=== PATIENT | male | born 1955 | race Caucasian/White ===

== ENCOUNTER → 2020-07-10 11:16 | Outpatient (CLI) | payer BC, SELFPAY ==
--- NOTE | ~2020-07-10 | MR_ITS ---
EXAMINATION: MR shoulder LT w con DATE: 07/10/2020 13:10 INDICATION: Rotator cuff tear presenting with left shoulder pain after shoveling snow 2 weeks prior. TECHNIQUE: Magnetic resonance imaging (MRI) of the left shoulder was performed following intra-artic ular gadolinium contrast injection and without intravenous contrast. Details of the glenohumeral join t injection have been dictated separately. Sequences included axial T2-weighted FS FSE, axial T1-robyn ghted FS FSE, coronal oblique T1-weighted FS FSE, coronal oblique T2-weighted FSE, sagittal T2-weight ed FS FSE, sagittal T1-weighted FSE, and ABER (abduction external rotation) T1-weighted FS FSE. COMPARISON: None. FINDINGS: Coracoacromial arch: The acromion undersurface is flat in morphology (type I). The coracoacromial ligament is normal. Mild acromioclavicular osteoarthritis. Rotator cuff: The supraspinatus, infraspinatus and teres minor are normal. The subscapularis is normal. Normal rota tor cuff muscle bulk and signal. Biceps tendon, glenoid labrum and glenohumeral cartilage: Long head of the biceps tendon is normal. There is a normal anterosuperior sublingual foramen along w ith a labral sulcus at the superior glenoid. The there is a tear beginning at the posterior aspect of the sulcus at the 11:30 position which extends posteriorly and inferiorly to the 6:30 position. Ther e is crescentic region of full-thickness chondral ulceration with underlying subarticular edema and c ystic change at the 7:00-10:30 region of the posterior glenoid. Additional small region of less sever e chondral fissuring at the anterior glenoid with adjacent small tear at the 3:00 position. Cartilage at the humeral head appears relatively preserved. Bones and other: Bone alignment is normal. No fracture or pathologic marrow replacing process. No loose osteochondral bodies. No abnormal fluid in the subacromial/subdeltoid bursa to suggest bursitis. IMPRESSION: 1. 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 Reviewed, dictated and finalized at location B. QUALITY ANALYST IMPRESSION: 1. Mild glenohumeral osteoarthritis with high-grade chondromalacia and labral t ear along the posterior superior to posterior inferior glenoid and small region of moderate grade chondromalacia and small labral tear at the anterior glenoid .
--- NOTE | ~2020-07-10 | XR_ITS ---
EXAMINATION: XR fl inj shoulder LT - MR/CT DATE: 07/10/2020 12:36 INDICATION: Rotator cuff tear with anterior left shoulder pain and limited range of motion following injury while shoveling snow 2 weeks prior. TECHNIQUE: A time-out was performed to verify the patient's name, date of , and procedure to b e performed. The procedure including the risks, benefits, and alternatives was discussed with the pat ient. Risks discussed included bleeding and infection. The patient understood the risks and agreed to proceed. The skin overlying the rotator cuff interval of the left glenohumeral joint was prepped an d draped in usual sterile fashion. Anesthetic was administered with 1% lidocaine subcutaneously. A 22 G needle was advanced under fluoroscopic guidance into the joint. Injection of 0.6 mL of Omnipaqu e 240 confirmed intra-articular position of the needle. Subsequently, injectate consisting of 12 mL of 2:1:1 mixture of sterile saline:Omnipaque 240:1% lidocaine mixed 200:1 with 529 mg/mL Multihance g adolinium contrast was injected with intra-articular administration confirmed with intermittent fluor oscopy. The needle was removed and the entry site was cleaned and dressed. There were no immediate c omplications. Fluoroscopy exposure time was 0.3 minutes. The total number of images was 220. FINDINGS: Real-time fluoroscopy demonstrates the needle in the left glenohumeral joint. IMPRESSION: 1. Successful left glenohumeral joint injection of a dilute gadolinium contrast mixture for subsequen t MRI arthrogram which will be dictated separately. Reviewed, dictated and finalized at location B. ARINE DIVER IMPRESSION: 1. Successful left glenohumeral joint injection of a dilute gadolinium contrast mixture for subsequent MRI arthrogram which will be dictated separately.
== END ==
PROVIDERS: Visit Provider Chiropractor
DX: M75.102 Unspecified rotator cuff tear or rupture of left shoulder, not specified as traumatic (principal); M19.012 Primary osteoarthritis, left shoulder
CPT/HCPCS: 23350; 73222; A9577; Q9966

== ENCOUNTER 2024-10-01 12:51 | Outpatient (CLI) | payer MEDICARE, SELFPAY ==
--- NOTE | ~2024-10-01 | XR_ITS ---
XR chest 2V 10/01/2024 13:27 Indication: Persistent cough Procedure: 2 view chest Comparison: No prior studies for comparison. Findings: Bibasilar atelectasis. No focal pneumonia, edema, pleural effusion or pneumothorax. Heart s ize normal. Impression: 1: Bibasilar atelectasis. Reviewed, dictated and finalized at location A. Impression: 1: Bibasilar atelectasis.
--- OUTSIDE RECORDS SUMMARY | 2024-10-01 13:05 | XMS_ITS | CONTINUITY OF CARE DOCUMENT ---
Author Name amandeep bernstein Address Unknown Organization [facility] Address [address] [place] [address] Phone [phone] Care Team Providers Care Controlled Area Checker Name Role Phone Juan Manuel ESPINOZA, Nithin Camacho Unavailable [phone] BUTCH ESPINOZA, KALIEY Galeas Unavailable KAILEY KUNZ MD Unavailable PROBLEMS Condition Status Date Provider Notes Chest pain- Stress test was normal active John Resendiz MD HTN essential active John Resendiz MD Hypertension active ? Nithin riggs MD Erectile dysfunction active Nithin Zambrano MD Hypercholesterolemia active Nithin Zambrano MD Mitral regurgitation active Nithin Zambrano MD Palpitations active Nithin riggs MD Fall risk active Nithin riggs MD Exposure to COVID-19 coronavirus active Nithin Zambrano MD Vaccinated moderna x2 pfizer x1 prior covid infection asymptomatic Cardiology examination active Kaylynn Zambrano MD ENCOUNTERS Date Type Provider Location Encounter Diag nosis - In-person encounter Office Visit Nithin Zambrano MD [facility] Cardiology examination - In-person encounter Office Visit Nithin Zambrano MD [facility] - In-person encounter Office Visit Nithin Zambrano MD [facility] - In-person encounter Office Visit Nithin Zambrano MD [facility] Exposure to COVID-19 coronavirus - In-person encounter Office Visit Nithin Zambrano MD [facility] Fall risk - In-person encounter Office Visit Nithin Zambrano MD [facility] Palpitations - In-person encounter Office Visit Nithin Zambrano MD [facility] Mitral regurgitation - In-person encounter Office Visit Nithin Zambrano MD [facility] - In-person encounter Office Visit Nithin Zambrano MD [facility] - In-person encounter Office Visit Nithin Zambrano MD [facility] - In-person encounter Office Visit Nithin Zambrano MD [facility] Hypercholesterolemia - In-person encounter Office Visit Nithin Zambrano MD [facility] - In-person encounter Office Visit Nithin Zambrano MD [facility] Erectile dysfunction - In-person encounter Office Visit Nithin Zambrano MD [facility] Hypertension - In-person encounter Office Visit John Resendiz MD [facility] Chest pain- Stress test was normalHTN essential VITAL SIGNS Date Observation Value Provider Body Mass Index (Ratio) 30.06 kg/m2 Kelli Zambrano MD blood pressure, diastolic 78 mm[Hg] Ary nkLoglinda blood pressure, systolic 120 mm[Hg] Flora Moralezoglinda blood pressure, cuff size regular Sterling Gomez blood pressure, diastolic 78 mm[Hg] Sterling Gomez blood pressure, systolic 120 mm[Hg] Tab trevor Gomez oxygen saturation, oximetry 98 % Solange Gomez respiratory rate E&M 12 /min Solange Gomez pulse rate 61 /min Solange Gomez weight E&M 247 [lb_av] Solange Gomez height E&M 76 [in_i] Solange Gomez Body Mass Index (Ratio) 30.18 kg/m2 Kelli Zambrano MD blood pressure, diastolic 77 mm[Hg] [facility] blood pressure, systolic 134 mm[Hg] Guillermo cheng Nathan oxygen saturation, oximetry 98 % Karin Nathan pulse rate 62 /min Karinskylar Evans respiratory rate E&M 18 /min Karin rey weight E&M 248 [lb_av] Karin Nathan height E&M 76 [in_i] Karin Evans blood pressure, diastolic 91 mm[Hg] [facility] pressure, systolic 149 mm[Hg] Flora Segundo blood pressure, diastolic 91 mm[Hg] [facility] blood pressure, systolic 149 mm[Hg] Flora Moralezlinda respiratory rate E&M 18 /min Mildred Rivera pulse rate 65 /min Mildred Rivera Body Mass Index (Ratio) 30.14 kg/m2 Mina Rivera weight in kilograms E&M 112.31 kg Mina Rivera weight E&M 247.6 [lb_av] Mildred Rivera height E&M 76 [in_i] Mildred Rivera height in centimeters E&M 193.04 cm halley Rivera blood pressure, diastolic 91 mm[Hg] halley Rivera blood pressure, systolic 149 mm[Hg] [facility] daquan Rivera oxygen saturation, oximetry 98 % Mildred Rivera blood pressure, cuff size regular Lakia Rivera Body Mass Index (Ratio) 30.06 kg/m2 Kelli Zambrano MD blood pressure, diastolic 77 mm[Hg] Li nkLogic blood pressure, systolic 120 mm[Hg] Flora kLogic blood pressure, diastolic 77 mm[Hg] Ca therine Cesar blood pressure, systolic 120 mm[Hg] Cat herine [place] oxygen saturation, oximetry 98 % Krissy Cesar respiratory rate E&M 14 /min Catheri ne [place] pulse rate 79 /min Krissy [place] weight E&M 247 [lb_av] Krissy [place] blood pressure, cuff size regular Ca therine [place] height E&M 76 [in_i] Krissy Cesar Body Mass Index (Ratio) 28.85 kg/m2 Kelli Zambrano MD blood pressure, diastolic 86 mm[Hg] Li nkLogic blood pressure, systolic 112 mm[Hg] Flora kLogic blood pressure, cuff size large Ca therine [place] blood pressure, diastolic 86 mm[Hg] Ca therine Cesar blood pressure, systolic 112 mm[Hg] Cat herine [place] oxygen saturation, oximetry 97 % Krissy Cesar respiratory rate E&M 16 /min Catheri ne Cesar pulse rate 64 /min Krissy Cesar weight E&M 237 [lb_av] Krissy [place] height E&M 76 [in_i] Krissy [place] Body Mass Index (Ratio) 28.60 kg/m2 Kelli Zambrano MD blood pressure, cuff size regular Cy gina Casiano blood pressure, diastolic 76 mm[Hg] Cy gina Casiano blood pressure, systolic 130 mm[Hg] Deanne milly Casiano pulse rate 69 /min Leda johns oxygen saturation, oximetry 98 % Leda Casiaon respiratory rate E&M 16 /min Leda Casiano weight E&M 235 [lb_av] Leda johns height E&M 76 [in_i] Leda johns Body Mass Index (Ratio) 28.97 kg/m2 Stan geraldo Lambros blood pressure, diastolic 80 mm[Hg] To nsha Miguel blood pressure, systolic 125 mm[Hg] Ton sha Miguel oxygen saturation, oximetry 96 % Tonsha Miguel respiratory rate E&M 16 /min Tonsha Miguel pulse rate 54 /min Tonsha Miguel weight E&M 238 [lb_av] Tonsha Miguel height E&M 76 [in_i] Tonsha Miguel Body Mass Index (Ratio) 29.09 kg/m2 Kelli Zambrano MD pulse rate 68 /min [facility] blood pressure, diastolic 80 mm[Hg] Marcela ittelmer Block blood pressure, systolic 130 mm[Hg] Agueda sd Zimmerman oxygen saturation, oximetry 99 % Yumiko Block weight E&M 239 [lb_av] Yumiko Block respiratory rate E&M 16 /min Brittan Block height E&M 76 [in_i] Yumiko Block temperature E&M 97.7 [degF] Deepti Hermelinda saucedo Body Mass Index (Ratio) 29.94 kg/m2 Erwin Plurad blood pressure, cuff size regular Cy brooklynlee ann Oh blood pressure, diastolic 76 mm[Hg] Cy ntkellkeely Casiano blood pressure, systolic 120 mm[Hg] Deanne milly Casiano oxygen saturation, oximetry 96 % Leda Oh respiratory rate E&M 16 /min Leda Casiano pulse rate 67 /min Leda johns weight E&M 246 [lb_av] Nithin riggs MD height E&M 76 [in_i] Leda Gonzales l Body Mass Index (Ratio) 29.16 kg/m2 Kelli Zambrano MD blood pressure, diastolic 70 mm[Hg] Papo Elam blood pressure, systolic 110 mm[Hg] Lizzy Elam oxygen saturation, oximetry 98 % Levi Elam respiratory rate E&M 18 /min Oli Elam pulse rate 70 /min Levi Dragan maryam weight E&M 239.6 [lb_av] Levi Adrian zelda height E&M 76 [in_i] Levi Dragan maryam Body Mass Index (Ratio) 28.46 kg/m2 Kelli Zambrano MD blood pressure, resting Yes Cyn Elam blood pressure, diastolic 82 mm[Hg] Papo Elam blood pressure, systolic 135 mm[Hg] Lizzy Elam oxygen saturation, oximetry 92 % Levi Elam respiratory rate E&M 18 /min Oli Elam pulse rate 68 /min Levi Archibald ernestineon weight E&M 233.8 [lb_av] Levi tangon height E&M 76 [in_i] Levi Archibald ernestineon respiratory rate E&M 16 /min Lynette Jayden pulse rate 64 /min Lynette Jayden oxygen saturation, oximetry 98 % Lynette Jayden blood pressure, diastolic 75 mm[Hg] Ky dorothy Jayden blood pressure, systolic 111 mm[Hg] Patricia daphne Jayden Body Mass Index (Ratio) 28.43 kg/m2 Jojo Carpenter weight E&M 233.6 [lb_av] Lynette Carpenter blood pressure, diastolic 88 mm[Hg] Me dorothy Carpenter blood pressure, systolic 134 mm[Hg] Patricia Carpenter pulse rate 66 /min Lynette Carpenter oxygen saturation, oximetry 99 % Lynette Carpenter respiratory rate E&M 16 /min Lynette Carpenter Body Mass Index (Ratio) 29.14 kg/m2 Jojo Carpenter weight E&M 239.4 [lb_av] Lynette Carpenter blood pressure, diastolic 102 mm[Hg] Me dorothy Carpenter blood pressure, systolic 149 mm[Hg] Patricia Carpenter respiratory rate E&M 16 /min Lynette Carpenter pulse rate 87 /min Lynette Carpenter oxygen saturation, oximetry 97 % Lynette Carpenter Body Mass Index (Ratio) 28.60 kg/m2 Jojo Carpenter weight E&M 235.0 [lb_av] Lynette Carpenter Body Mass Index (Ratio) 28.36 kg/m2 Ortega i Antoine blood pressure, diastolic 80 mm[Hg] Ke jamilai Antoine blood pressure, systolic 126 mm[Hg] Anam Schultz pulse rate 78 /min Brenda lebroner oxygen saturation, oximetry 98 % Brenda Schultz respiratory rate E&M 16 /min Brenda hollins weight E&M 233 [lb_av] Brenda lebroner height E&M 76 [in_i] Brenda Ridley lder ALLERGIES No Known Drug Allergies HISTORY OF MEDICATION USE Medication Status Instructions Dates Provider Indications Com ments Viagra 50 mg tablet active 1 tablet by mouth once a day 1 tablet 1 hour before intercourse 2024/05/ 29 Kala Marino [employer] Coreg 6.25 mg tablet active TAKE 1&1/2 TABLETS BY MOUTH TWICE DAILY Jannette Rushing carvedilol 6.25 mg tablet completed TAKE 1 1/2 TABLET BY MOUTH TWICE DAILY - Jannette Rushing carvedilol 6.25 mg tablet completed Take 1 1/2 tablet by mouth twice a day - Jannette Almanzahiezio nitroglycerin 0.4 mg tablet, sublingual active PLACE 1 TABLET UNDER TONGUE EVERY 5 MINS, UP TO 3 DOSES NEEDED FOR CHEST PAIN. DO NOT EXCEED A TOTAL OF 3 DOSES IN 15 MINUTES. GO TO ER IF 3 DOSES USED Nithin Zambrano MD LISINOPRIL-HYDRO CHLOROTHIAZIDE 10-12.5 MG ORAL TABLET completed take one tab tablet - Nithin Zambrano MD amlodipine 10 mg tablet active 1 tablet once a day Brenda Schultz Coreg 6.25 mg tablet completed Take 1.5 tablet by mouth twice a day - Nazanin Arroyo Lipitor 20 mg tablet active 1 tablet by mouth once a day Nithin Zambrano MD CARDIZEM 120 MG ORAL TABLET completed qd - Levi Elam HYDROCODONE-ACET AMINOPHEN 5-325 MG ORAL TABLET completed prn - Levi Elam MULTIVITAMIN ADULT ORAL TABLET completed once daily - Levi Elam ASPIR-81 TABLET DELAYED RELEASE completed once daily - Leda Casiano alprazolam 1 mg tablet active 1 tablet by mouth once a day Levi Elam LISINOPRIL-HYDRO CHLOROTHIAZIDE 10-12.5 MG ORAL TABLET completed ONE TAB. DAILY - Yumiko Zimmerman MOBIC 7.5 MG ORAL TABLET completed take one pill twice a day as needed - Lynette Carpenter ALPRAZOLAM 0.25 MG ORAL TABLET completed take one pill twice a day - Lynette Carpenter VICODIN ES TABLET completed 325mg three times a day - Lynette Carpenter ASPIRIN 325 MG ORAL TABLET completed take one pill a day - Lynette Carpenter TOPROL XL 25 MG ORAL TABLET EXTENDED RELEASE 24 HOUR completed take one pill a day - Nithin Zambrano MD SOCIAL HISTORY Date Observation Value Provider personal history of marijuana use no Kala Ventimiglia [facility] drug use no Kala Ventimig dedrick [facility] alcohol use, average drinks per day social Nithin Zambrano MD alcohol use yes Nithin riggs MD smoking status Never smoker Nithin torres MD social history E&M S moking History: Ayush harry has never smoked. Nithin Zambrano MD social history reviewed E&M revi ewed - no changes required Nithin Zambrano MD smoking status Never smoker Karin Nathan social history E&M S moking History: Ayush harry has never smoked. Nithin Zambrano MD social history reviewed E&M revi ewed - no changes required Nithin Zambrano MD smoking status Never smoker Mildred Nicole social history E&M S moking History: Ayush harry has never smoked. Nithin Zambrano MD social history reviewed E&M revi ewed - no changes required Nithin Zambrano MD smoking status Never smoker Krissy Isis s smoking status Never smoker Krissy Isis s social history E&M S moking History: Ayush harry has never smoked. Nithin Zambrano MD social history reviewed E&M revi ewed - no changes required Nithin Zambrano MD smoking status Never smoker Leda baron smoking status Never smoker Nithin torres MD social history E&M S moking History: Ayush harry has never smoked. Nithin Zambrano MD social history reviewed E&M revi ewed - no changes required Nithin Zambrano MD social history E&M S moking History: Ayush harry has never smoked. Nithin Zambrano MD social history reviewed E&M revi ewed - no changes required Nithin Zambrano MD smoking status Never smoker Yumiko evans social history reviewed E&M revi ewed - no changes required Nithin Zambrano MD social history E&M S moking History: Ayush harry has never smoked. Nithin Zambrano MD alcohol use, average drinks per day social Leda Casiano alcohol use yes Leda johns smoking status Never smoker Leda baron social history E&M S moking History: Ayush harry has never smoked. Nithin Zambrano MD social history reviewed E&M revi ewed - no changes required Nithin Zambrano MD alcohol use, average drinks per day social Levi Elam alcohol use yes Levi Archibald maryam smoking status Never smoker Levi Zendejas number of grandchildren Nithin Zambrano MD social history E&M S moking History: Ayush harry has never smoked. Nithin Zambrano MD social history reviewed E&M revi ewed - no changes required Nithin Zambrano MD alcohol use, average drinks per day social Levi Elam alcohol use yes Levi Archibald maryam smoking status Never smoker Levi Zendejas social history reviewed E&M revi ewed - no changes required Nithin Zambrano MD alcohol use, average drinks per day social Lynette Carpenter alcohol use yes Lynette Carpenter smoking status Never smoker Lynette Carpenter social history reviewed E&M revi ewed - no changes required Nithin Zambrano MD alcohol use, average drinks per day social Lynette Carpenter alcohol use yes Lynette Carpenter smoking status Never smoker Lynette Carpenter alcohol use, average drinks per day social Lynette Carpenter alcohol use yes Lynette Carpenter smoking status Never smoker Lynette Carpenter social history reviewed E&M revi ewed - no changes required John Resendiz MD alcohol use, average drinks per day social Brenda Schultz alcohol use yes Brenda Keyana mnedoza smoking status Never smoker Brenda Ekta hansen FAMILY HISTORY Family Member Condition Father Family History of Hong dden Cardiac : Father Family History of Hy pertension: Father Family History of Hy perlipidemia: Father Family History of CV A or Stroke: Mother Family History of Co ngestive Heart Failure: Mother Family History of Hy pertension: INSURANCE PROVIDERS Payer name Policy type / Coverage type [facility] ID [employer] MEDICARE GOLD ADVANTAGE HMO Medicare [id number] ADVANCE DIRECTIVES Name Date DISCUSSED - NO DECISION MADE TREATMENT PLAN Date Name Performer [id number],S, H is updated medication list for this problem includes: Lipitor 20 Mg Tablet (Atorvastatin) ..... 1 tablet by mouth once a day Nithin Zambrano MD [id number],C, H is updated medication list for this problem includes: Carvedilol 6.25 Mg Tablet (Carvedilol) ..... Take 1 1/2 tablet by mouth twice a day Amlodipine 10 Mg Tablet (Amlodipine) ..... 1 tablet once a day BP today: 134/77 P rior BP: 149/91 (06/16/2022) Nithin Zambrano MD [id number],C,H as PVCs on EKG. COntinue with Coreg. Do not want to increase dose because he is already bradycardic. Check labs before adding more meds. Nithin Zambrano MD [id number],C, E cho from 10/25/20 CONCLUSIONS: 1 . Normal left ventricular systolic function. Normal left ventricular size. Normal left ventricular wall thickness. Normal left v entricular diastolic function. E/E': 7.3. Left ventricular ejection fraction is measured at 55 %. 2 . Normal right ventricular size. 3 . There is non-specific thickening of the mitral valve leaflets. Mild mitral valve regurgitation. June 16, 2022 D oubt MR is related to any of his symptoms. Will check ECHO at some time this year. Nithin Zambrano MD [id number],C, S table. S table on coreg H is updated medication list for this problem includes: Amlodipine Besylate 10 Mg Oral Tablet (Amlodipine besylate) ..... 1 tab daily Coreg 6.25 Mg Oral Tablet (Carvedilol) ..... 1.5 tab. twice daily Nithin Zambrano MD [id number],C, Nithin garcia MD [id number],C, E cho from 10/25/20 CONCLUSIONS: 1 . Normal left ventricular systolic function. Normal left ventricular size. Normal left ventricular wall thickness. Normal left v entricular diastolic function. E/E': 7.3. Left ventricular ejection fraction is measured at 55 %. 2 . Normal right ventricular size. 3 . There is non-specific thickening of the mitral valve leaflets. Mild mitral valve regurgitation. June 16, 2022 D oubt MR is related to any of his symptoms. Will check ECHO at some time this year. Nithin Zambrano MD [id number],S, N o new epsiodes of . Recent stress test shows Summary 1 . Myocardial scintigraphy is normal without evidence for previous myocardial infarction or reversible ischemia. 2 . Normal left ventricular size and function with a calculated ejection fraction of 61%. 3 . Normal Toño protocol exercise tolerance test. H is updated medication list for this problem includes: Lisinopril-hydrochlorothiazide 10-12.5 Mg Oral Tablet (Lisinopril-hydrochlorothiazide) ..... Take one tab tablet Amlodipine Besylate 10 Mg Oral Tablet (Amlodipine besylate) ..... 1 tab daily Coreg 6.25 Mg Oral Tablet (Carvedilol) ..... One tab. twice daily June 16, 2022 R monica bahal in ER led to recent stress test which was WNL. Doubt any need for additional cardiac workup. If he has recurrent sx, will arrange for him to get coronary CT angiogram. However, with the stress level he has at work, it seems to have correlated with his symptoms as he had a worker resigned. Get him Rx for sublingual nitro pills. He is going to [place]. Advised him to take nitro patches and pills with him. Nithin Zambrano MD [id number],C,B P is elevated today. Discussion of benefits for remote patient monitoring took place. Patient gives consent for remote monitoring of physiologic parameters including, but not limited to, weight, blood pressure, pulse oximetry, respiratory flow rate. His updated medication list for this problem includes: Coreg 6.25 Mg Tablet (Carvedilol) ..... Take 1.5 tablet by mouth twice a day Amlodipine 10 Mg Tablet (Amlodipine) ..... 1 tablet once a day BP today: 149/91 P rior BP: 120/77 (08/13/2021) Nithin Zambrano MD [id number],S,V accinated moderna x2 pfizer x1 prior covid infection asymptomatic Nithin Zambrano MD [id number],C, H is updated medication list for this problem includes: Amlodipine Besylate 10 Mg Oral Tablet (Amlodipine besylate) ..... 1 tab daily Coreg 6.25 Mg Oral Tablet (Carvedilol) ..... 1.5 tab. twice daily BP today: 112/86 P rior BP: 130/76 (07/10/2020) Nithin Zambrano MD [id number],C,L abwork per Dr. Kunz need to get results. Nithin Zambrano MD [id number],C,S table. S table on coreg H is updated medication list for this problem includes: Amlodipine Besylate 10 Mg Oral Tablet (Amlodipine besylate) ..... 1 tab daily Coreg 6.25 Mg Oral Tablet (Carvedilol) ..... 1.5 tab. twice daily Nithin Zambrano MD [id number],S, E cho from 10/25/20 CONCLUSIONS: 1 . Normal left ventricular systolic function. Normal left ventricular size. Normal left ventricular wall thickness. Normal left v entricular diastolic function. E/E': 7.3. Left ventricular ejection fraction is measured at 55 %. 2 . Normal right ventricular size. 3 . There is non-specific thickening of the mitral valve leaflets. Mild mitral valve regurgitation. Nithin Zambrano MD [id number],C,H e fell down tripped on his step at home getting a CT scan of the head per pcp Nithin Zambrano MD [id number],C, Nithin Zambrano MD [id number],C, H is updated medication list for this problem includes: Lipitor 20 Mg Oral Tablet (Atorvastatin calcium) ..... One tab. daily Nithin Zambrano MD [id number],B,S table on coreg H is updated medication list for this problem includes: Amlodipine Besylate 10 Mg Oral Tablet (Amlodipine besylate) ..... 1 tab daily Coreg 6.25 Mg Oral Tablet (Carvedilol) ..... 1.5 tab. twice daily Nithin Zambrano MD [id number],C,C ONCLUSIONS: 1 . Normal left ventricular systolic function. Normal left ventricular size. Normal left ventricular wall thickness. Normal left v entricular diastolic function. E/E': 7.3. Left ventricular ejection fraction is measured at 55 %. 2 . Normal right ventricular size. 3 . There is non-specific thickening of the mitral valve leaflets. Mild mitral valve regurgitation. Nithin Zambrano MD [id number],C, H is updated medication list for this problem includes: Amlodipine Besylate 10 Mg Oral Tablet (Amlodipine besylate) ..... 1 tab daily Coreg 6.25 Mg Oral Tablet (Carvedilol) ..... 1.5 tab. twice daily BP today: 112/86 P rior BP: 130/76 (07/10/2020) Nithin Zambrano MD Cardiology:continues to have issues with ED. He wishes to trial viagra will prescribe H e has SL nitro which he has not taken in over 10 years I nstructed patient he cannot take with his viagra and instructed to inform EMS should he develop chest pain after using viagra P atient verbalized understanding. Kala Marino [facility] Cardiology: N alfredo new epsiodes of [place]. Recent stress test shows Summary 1 . Myocardial scintigraphy is normal without evidence for previous myocardial infarction or reversible ischemia. 2. Normal left ventricular size and function with a calculated ejection fraction of 61%. 3 . Normal Toño protocol exercise tolerance test. H is updated medication list for this problem includes: Lisinopril-hydrochlorothiazide 10-12.5 Mg Oral Tablet (Lisinopril-hydrochlorothiazide) ..... Take one tab tablet Amlodipine Besylate 10 Mg Oral Tablet (Amlodipine besylate) ..... 1 tab daily Coreg 6.25 Mg Oral Tablet (Carvedilol) ..... One tab. twice daily June 16, 2022 Maria Eugenia carrillo in ER led to recent stress test which was WNL. Doubt any need for additional cardiac workup. If he has recurrent sx, will arrange for him to get coronary CT angiogram. However, with the stress level he has at work, it seems to have correlated with his symptoms as he had a worker resigned. Get him Rx for sublingual nitro pills. He is going to [place]. Advised him to take nitro patches and pills with him. Kala Marino [facility] Cardiology: Laxmi dominguez from 10/25/20 CONCLUSIONS: 1 . Normal left ventricular systolic function. Normal left ventricular size. Normal left ventricular wall thickness. Normal left v entricular diastolic function. E/E': 7.3. Left ventricular ejection fraction is measured at 55 %. 2 . Normal right ventricular size. 3 . There is non-specific thickening of the mitral valve leaflets. Mild mitral valve regurgitation. June 16, 2022 D oubt MR is related to any of his symptoms. Will check ECHO at some time this year. [facility]:has not h ad any new palps no plan to increase the coreg H is updated medication list for this problem includes: Coreg 6.25 Mg Tablet (Carvedilol) ..... Take 1&1/2 tablets by mouth twice daily Nitroglycerin 0.4 Mg Tablet, Sublingual (Nitroglycerin) ..... Place 1 tablet under tongue every 5 mins, up to 3 doses as needed for chest pain. do not exceed a total of 3 doses in 15 minutes. go to er if 3 doses used Amlodipine 10 Mg Tablet (Amlodipine) ..... 1 tablet once a day [facility] Cardiology: B P today: 120/78 P rior BP: 134/77 (09/21/2022) His updated medication list for this problem includes: Coreg 6.25 Mg Tablet (Carvedilol) ..... Take 1&1/2 tablets by mouth twice daily Amlodipine 10 Mg Tablet (Amlodipine) ..... 1 tablet once a day [facility] Cardiology: H is updated medication list for this problem includes: Lipitor 20 Mg Tablet (Atorvastatin) ..... 1 tablet by mouth once a day [facility] Cardiology: H is updated medication list for this problem includes: Lipitor 20 Mg Tablet (Atorvastatin) ..... 1 tablet by mouth once a day Nithin Zambrano MD Cardiology: H is updated medication list for this problem includes: Carvedilol 6.25 Mg Tablet (Carvedilol) ..... Take 1 1/2 tablet by mouth twice a day Amlodipine 10 Mg Tablet (Amlodipine) ..... 1 tablet once a day BP today: 134/77 P rior BP: 149/91 (06/16/2022) Nithin Zambrano MD Cardiology:Has PVCs on EKG. COntinue with Coreg. Do not want to increase dose because he is already bradycardic. Check labs before adding more meds. Nithin Zambrano MD Cardiology: E cho from 10/25/20 CONCLUSIONS: 1 . Normal left ventricular systolic function. Normal left ventricular size. Normal left ventricular wall thickness. Normal left v entricular diastolic function. E/E': 7.3. Left ventricular ejection fraction is measured at 55 %. 2 . Normal right ventricular size. 3 . There is non-specific thickening of the mitral valve leaflets. Mild mitral valve regurgitation. June 16, 2022 D oubt MR is related to any of his symptoms. Will check ECHO at some time this year. Nithin Zambrano MD Cardiology: S table. S table on coreg H is updated medication list for this problem includes: Amlodipine Besylate 10 Mg Oral Tablet (Amlodipine besylate) ..... 1 tab daily Coreg 6.25 Mg Oral Tablet (Carvedilol) ..... 1.5 tab. twice daily Nithin Zambrano MD Cardiology Nithin Zambrano MD Cardiology: E cho from 10/25/20 CONCLUSIONS: 1 . Normal left ventricular systolic function. Normal left ventricular size. Normal left ventricular wall thickness. Normal left v entricular diastolic function. E/E': 7.3. Left ventricular ejection fraction is measured at 55 %. 2 . Normal right ventricular size. 3 . There is non-specific thickening of the mitral valve leaflets. Mild mitral valve regurgitation. June 16, 2022 D oubt MR is related to any of his symptoms. Will check ECHO at some time this year. Nithin Zambrano MD Cardiology: N o new epsiodes of CP. Recent stress test shows Summary 1 . Myocardial scintigraphy is normal without evidence for previous myocardial infarction or reversible ischemia. 2. Normal left ventricular size and function with a calculated ejection fraction of 61%. 3 . Normal Toño protocol exercise tolerance test. H is updated medication list for this problem includes: Lisinopril-hydrochlorothiazide 10-12.5 Mg Oral Tablet (Lisinopril-hydrochlorothiazide) ..... Take one tab tablet Amlodipine Besylate 10 Mg Oral Tablet (Amlodipine besylate) ..... 1 tab daily Coreg 6.25 Mg Oral Tablet (Carvedilol) ..... One tab. twice daily June 16, 2022 R monica KENIA lorena in ER led to recent stress test which was WNL. Doubt any need for additional cardiac workup. If he has recurrent sx, will arrange for him to get coronary CT angiogram. However, with the stress level he has at work, it seems to have correlated with his symptoms as he had a worker resigned. Get him Rx for sublingual nitro pills. He is going to [place]. Advised him to take nitro patches and pills with him. Nithin Zambrano MD Cardiology:BP is saurabh vated today. Discussion of benefits for remote patient monitoring took place. Patient gives consent for remote monitoring of physiologic parameters including, but not limited to, weight, blood pressure, pulse oximetry, respiratory flow rate. His updated medication list for this problem includes: Coreg 6.25 Mg Tablet (Carvedilol) ..... Take 1.5 tablet by mouth twice a day Amlodipine 10 Mg Tablet (Amlodipine) ..... 1 tablet once a day BP today: 149/91 P rior BP: 120/77 (08/13/2021) Nithin Zambrano MD Cardiology:Vaccinate d moderna x2 pfizer x1 prior covid infection asymptomatic Nithin Zambrano MD Cardiology: H is updated medication list for this problem includes: Amlodipine Besylate 10 Mg Oral Tablet (Amlodipine besylate) ..... 1 tab daily Coreg 6.25 Mg Oral Tablet (Carvedilol) ..... 1.5 tab. twice daily BP today: 112/86 P rior BP: 130/76 (07/10/2020) Nithin Zambrano MD Cardiology:Labwork p er Dr. Kunz need to get results. Nithin Zambrano MD Cardiology:Stable. S table on coreg H is updated medication list for this problem includes: Amlodipine Besylate 10 Mg Oral Tablet (Amlodipine besylate) ..... 1 tab daily Coreg 6.25 Mg Oral Tablet (Carvedilol) ..... 1.5 tab. twice daily Nithin Zambrano MD Cardiology: Laxmi dominguez from 10/25/20 CONCLUSIONS: 1 . Normal left ventricular systolic function. Normal left ventricular size. Normal left ventricular wall thickness. Normal left v entricular diastolic function. E/E': 7.3. Left ventricular ejection fraction is measured at 55 %. 2 . Normal right ventricular size. 3 . There is non-specific thickening of the mitral valve leaflets. Mild mitral valve regurgitation. Nithin Zambrano MD Cardiology:He fell d own tripped on his step at home getting a CT scan of the head per pcp Nithin Zambrano MD Cardiology Nithin Zambrano MD Cardiology: H is updated medication list for this problem includes: Lipitor 20 Mg Oral Tablet (Atorvastatin calcium) ..... One tab. daily Nithin Zambrano MD Cardiology:Stable on coreg H is updated medication list for this problem includes: Amlodipine Besylate 10 Mg Oral Tablet (Amlodipine besylate) ..... 1 tab daily Coreg 6.25 Mg Oral Tablet (Carvedilol) ..... 1.5 tab. twice daily Nithin Zambrano MD Cardiology:CONCLUSIO NS: 1 . Normal left ventricular systolic function. Normal left ventricular size. Normal left ventricular wall thickness. Normal left v entricular diastolic function. E/E': 7.3. Left ventricular ejection fraction is measured at 55 %. 2 . Normal right ventricular size. 3 . There is non-specific thickening of the mitral valve leaflets. Mild mitral valve regurgitation. Nithin Zambrano MD Cardiology: H is updated medication list for this problem includes: Amlodipine Besylate 10 Mg Oral Tablet (Amlodipine besylate) ..... 1 tab daily Coreg 6.25 Mg Oral Tablet (Carvedilol) ..... 1.5 tab. twice daily BP today: 112/86 P rior BP: 130/76 (07/10/2020) Nithin Zambrano MD Cardiology follow up : BP today: 130/76 P rior BP: 125/80 (01/08/2020) Nithin Zambrano MD Cardiology follow up : H is updated medication list for this problem includes: Lipitor 20 Mg Oral Tablet (Atorvastatin calcium) ..... One tab. daily Nithin Zambrano MD Cardiology follow up :he seems to have had 1 short burst of afib. and then the other one appears to be SVT in chronological sequence. I think that leaving him on ASA at present is OK. i ncrease coreg to 6.25 TID Nithin Zambrano MD Cardiology follow up :will repeat echo to eval his MR which was mild to moderate on study 09/28/2019 Nithin Zambrano MD Cardiology: H is updated medication list for this problem includes: Lipitor 20 Mg Oral Tablet (Atorvastatin calcium) ..... One tab. daily Nithin Zambrano MD Cardiology:No new ep siodes of CP. Recent stress test shows Summary 1 . Myocardial scintigraphy is normal without evidence for previous myocardial infarction or reversible ischemia. 2 . Normal left ventricular size and function with a calculated ejection fraction of 61%. 3 . Normal Toño protocol exercise tolerance test. H is updated medication list for this problem includes: Lisinopril-hydrochlorothiazide 10-12.5 Mg Oral Tablet (Lisinopril-hydrochlorothiazide) ..... Take one tab tablet Amlodipine Besylate 10 Mg Oral Tablet (Amlodipine besylate) ..... 1 tab daily Coreg 6.25 Mg Oral Tablet (Carvedilol) ..... One tab. twice daily Nithin Zambrano MD Cardiology:Reviewed on echo, had mild to moderate MR. He tried Lisinopril but was getting dizzy and lightheaded and as a result he stopped. BPs documented in the 120s. HR in the 60's. Already on low dose BB and Amlodipine. Nithin Zambrano MD Cardiology Nithin Zambrano MD Cardiology:Continue with Lipitor. Bloodwork per PCP. O rders: C omplete Echo (CPT-39565) S tress Exercise Cardiolite (CPT-40333) His updated medication list for this problem includes: Lipitor 20 Mg Oral Tablet (Atorvastatin calcium) ..... One tab. daily Nithin Zambrano MD Cardiology:No recent CP issues. FMHx of mother with CHF. Has not had any recent testing for > 5 years. Will order nuc exercise stress. Hx of hypercholesterolemia on Lipitor 20 mg once daily. Nithin Zambrano MD Cardiology:Check ech o for LVH T he following medications were removed from the medication list: Lisinopril-hydrochlorothiazide 10-12.5 Mg Oral Tablet (Lisinopril-hydrochlorothiazide) ..... One tab. daily His updated medication list for this problem includes: Amlodipine Besylate 10 Mg Oral Tablet (Amlodipine besylate) ..... 1 tab daily Coreg 6.25 Mg Oral Tablet (Carvedilol) ..... One tab. twice daily BP today: 130/80 P rior BP: 120/76 (09/05/2018) Nithin Zambrano MD Cardiology follow up Nithin ramirez MD Cardiology follow up : T he following medications were removed from the medication list: Cardizem 120 Mg Oral Tablet (Diltiazem hcl) ..... Qd His updated medication list for this problem includes: Coreg 6.25 Mg Oral Tablet (Carvedilol) ..... One tab. twice daily Aspir-81 Tablet Delayed Release (Aspirin tbec) ..... Once daily Lisinopril-hydrochlorothiazide 10-12.5 Mg Oral Tablet (Lisinopril-hydrochlorothiazide) ..... One tab. daily BP today: 110/70 P rior BP: 135/82 (10/28/2016) Nithin Zambrano MD Cardiology follow up :Chol 211 in 08/2018. Will be okay to advance his lipitor to 40 mg once daily. On statin per PCP . His updated medication list for this problem includes: Lipitor 10 Mg Oral Tablet (Atorvastatin calcium) ..... One tab. daily Nithin Zambrano MD Cardiology: T RIAL OF ANDRES OR RONNY Zambrano MD Cardiology:No further episodes o f CP. Nithin Zambrano MD Cardiology: O n statin per PCP . His updated medication list for this problem includes: Lipitor 10 Mg Oral Tablet (Atorvastatin calcium) ..... One tab. daily Nithin Zambrano MD Cardiology: T he following medications were removed from the medication list: Cardizem 120 Mg Oral Tablet (Diltiazem hcl) ..... Qd His updated medication list for this problem includes: Coreg 6.25 Mg Oral Tablet (Carvedilol) ..... One tab. twice daily Aspir-81 Tablet Delayed Release (Aspirin tbec) ..... Once daily Lisinopril-hydrochlorothiazide 10-12.5 Mg Oral Tablet (Lisinopril-hydrochlorothiazide) ..... One tab. daily BP today: 110/70 P rior BP: 135/82 (10/28/2016) Nithin Zambrano MD Cardiology:On statin per PCP . S flor Zambrano MD Cardiology:No new fu rther CP sx. At present, no need for anuy invasive or noninvasive testing. Continue woith cardiac risk factor prophylaxis. Nithin Zambrano MD Cardiology:BP well c ontrolled. H is updated medication list for this problem includes: Cardizem 120 Mg Tabs (Diltiazem hcl) ..... Qd Aspir-81 Tbec (Aspirin tbec) ..... Once daily Zestoretic 10-12.5 Mg Tabs (Lisinopril-hydrochlorothiazide) ..... One tab. daily Nithin Zambrano MD Cardiology: T he following medications were removed from the medication list: Toprol Xl 25 Mg Oral [id number] (Metoprolol succinate) ..... Take one pill a day His updated medication list for this problem includes: Cardizem 120 Mg Tabs (Diltiazem hcl) ..... Qd Aspir-81 Tbec (Aspirin tbec) ..... Once daily Zestoretic 10-12.5 Mg Tabs (Lisinopril-hydrochlorothiazide) ..... One tab. daily Nithin Zambrano MD Cardiology: T he following medications were removed from the medication list: Toprol Xl 25 Mg Oral [id number] (Metoprolol succinate) ..... Take one pill a day His updated medication list for this problem includes: Cardizem 120 Mg Tabs (Diltiazem hcl) ..... Qd Aspir-81 Tbec (Aspirin tbec) ..... Once daily Zestoretic 10-12.5 Mg Tabs (Lisinopril-hydrochlorothiazide) ..... One tab. daily Nithin Zambrano MD Cardiology:TRIAL OF CIALIS OR LAURAA Nithin Zambrano MD Cardiology: H is updated medication list for this problem includes: Aspir-81 Tbec (Aspirin tbec) ..... Once daily Zestoretic 10-12.5 Mg Tabs (Lisinopril-hydrochlorothiazide) ..... One tab. daily Toprol Xl 25 Mg Oral [id number] (Metoprolol succinate) ..... Take one pill a day Nithin Zambrano MD Cardiology Nithin Zambrano MD Cardiology:added zes toretic T he following medications were removed from the medication list: Aspirin 325 Mg Oral Tabs (Aspirin) ..... Take one pill a day His updated medication list for this problem includes: Zestoretic 10-12.5 Mg Tabs (Lisinopril-hydrochlorothiazide) ..... One tab. daily Toprol Xl 25 Mg Oral [id number] (Metoprolol succinate) ..... Take one pill a day Nithin Zambrano MD Cardiology:RECURRENT CP WILL GET REPEAT STRESS THIS YEAR AND D/W HIM RE CATH T he risks and benefits of the procedure, including but not limited the risk of heart attack, , stroke, bleeding, kidney failure, and loss of limb as well as the alternative of continued medical therapy, stress testing or bypass surgery were discussed with the patient and any present family members and the patient wishes to proceed with cardiac cath and stenting. The patient and family had opportunity to discuss this with us. Written material including informed consent was given out. The following medications were removed from the medication list: Aspirin 325 Mg Oral Tabs (Aspirin) ..... Take one pill a day His updated medication list for this problem includes: Zestoretic 10-12.5 Mg Tabs (Lisinopril-hydrochlorothiazide) ..... One tab. daily Toprol Xl 25 Mg Oral [id number] (Metoprolol succinate) ..... Take one pill a day Nithin Zambrano MD Hospital Follow up : H is updated medication list for this problem includes: Aspirin 325 Mg Oral Tabs (Aspirin) ..... Take one pill a day Toprol Xl 25 Mg Oral [id number] (Metoprolol succinate) ..... Take one pill a day John Resendiz MD Hospital Follow up : H is updated medication list for this problem includes: Aspirin 325 Mg Oral Tabs (Aspirin) ..... Take one pill a day Toprol Xl 25 Mg Oral [id number] (Metoprolol succinate) ..... Take one pill a day John Resendiz MD Date Name LIPID PANEL MAGNESIUM TSH, free T4, total T3 COMPREHENSIVE METABO LIC PANEL, W/EGFR Stress Regadenoson Carotid Duplex Bilat eral Complete Echo Stress Exercise Card iolite Complete Echo Complete Echo STR - Nuclear HISTORY OF PROCEDURES Procedure Date Procedure Name Provider Procedure Notes S tatus EKG Nithin Zambrano MD completed EKG Nithin Zambrano MD completed EKG Nithin Zambrano MD completed EKG Nithin Zambrano MD completed Event Monitor Wilmar Ramachandran MD comple xavier EKG Nithin Zambrano MD completed EKG Nithin Zambrano MD completed Cardiolite, 2 units Nithin garcia MD completed SPECT Images Nithin Zambrano MD completed Stress EKG Nithin Zambrano MD completed EKG Nithin Zambrano MD completed EKG Nithin Zambrano MD completed EKG Nithin Zambrano MD completed EKG Nithin Zambrano MD completed SNOMED-CT: [id number] Current Medications Documented Nithin Zambrano MD completed SNOMED-CT: [id number] Physical Exam, Performed: Pulse Exam of Foot Nithin Zambrano MD completed EKG Nithin Zambrano MD completed SNOMED-CT: [id number] Current Medications Documented Nithin Zambrano MD completed EKG Nithin Zambrano MD completed SNOMED-CT: [id number] Current Medications Documented Nithin Zambrano MD completed Stress EKG John Resendiz MD completed Cardiolite, 2 units Nithin garcia MD completed SPECT Images John Resendiz MD complet ed EKG Nithin Zambrano MD completed SNOMED-CT: [id number] Current Medications Documented Nithin Zambrano MD completed EKG Nithin Zambrano MD completed
--- OUTSIDE RECORDS SUMMARY | 2024-10-01 13:05 | XMS_ITS | Data Portability ---
[facility] Address [address] [place] [address] Care Team Providers Care [employer] Manager Name Role Phone KAILEY KUNZ Primary Care Provider Unavailabl e Assessment Encounter Date Assessment Date Assessment LastModified by Organization Details LastModified Time 07/18/2023 07/18/2023 Hypertension amlodipine carvedilol anxiety alprazolam doing well. Dyslipidemia atorvastatin. Continue current therapy stay up-to-date on immunizations and screenings. Follow-up with me in 6 months Not available 07/22/2023 22:57:31 01/24/2024 01/24/2024 We will continue current therapy flu shot today he will follow up in 6 months blood work has been ordered his diagnosis have been discussed [email or web address] Not available 02/03/2024 15:05:39 08/27/2024 08/27/2024 Blood pressure control continue current therapy obtain colonoscopy report healthy lifestyle care instructions will be given blood work has been ordered he will see me back in 6 months [email or web address] Not available 09/01/2024 16:41:51 Plan of Treatment Reminders Order Date Submit Date Provider Last Modified By Organization Details Last Modified Time Details Appointments ANY 15 2024 10:00A M Kailey Kunz MD Not available Not available Not available Lab PSA, total, serum or plasma 2024 025 SHERIE [facility], [address], [place], [address], 08/28/2024 06:45:14 lipid panel, serum 2024 025 SHERIE [facility], [address], [place], [address], 08/28/2024 06:45:10 CBC w/ auto diff 2024 025 SHERIE [facility], [address], [place], [address], 08/28/2024 06:45:13 CMP, serum or plasma 2024 025 SHERIE Romero, [address], [place], [address], 08/28/2024 06:45:12 lipid panel, serum 2023 024 SHERIE Romero, [address], [place], [address], 02/10/2024 08:36:56 CMP, serum or plasma 2023 024 SHERIE Romero, [address], [place], [address], 02/10/2024 08:36:57 CBC w/ auto diff 2023 024 SHERIE Romero, [address], [place], [address], 02/10/2024 08:36:58 PSA, total, serum or plasma 2023 024 SHERIE [facility], [address], [place], [address], 08/16/2023 08:25:22 lipid panel, serum 2023 024 SHERIE Romero, [address], [place], [address], 08/16/2023 08:25:20 CMP, serum or plasma 2023 024 SHERIE Romero, [address], [place], [address], 08/16/2023 08:25:21 CBC w/ auto diff 2023 024 SHERIE [facility], [address], [place], [address], 08/16/2023 08:25:22 Referral None recorded . Procedures None recorded . Surgeries None recorded . Imaging None recorded . Medication Orders None recorded . Patient TargetsNo targets recorded. Patient Instructions Encounter Date Encounter Id Patient Instructions Last Modified By Organization Details Last Modified Time 08/27/2024 [id number] A healthy lifestyle: care instructions [email or web address] Not available 08/27/2024 12:58:28 Reason for Referral None Reported. Results Created Date Observation Date Name Description Value Unit Range Abnormal Flag Note LastModifiedBy Organization Detail LastModifiedTime 08/15/19 24 08/16/2023 LIPID PANEL cholesterol, total 194 mg/dL 100-19 9 Not Available [facility] ([facility]) [address] [place], [address], 08/16/2023 08:25:20 08/15/19 24 08/16/2023 LIPID PANEL triglyceride s 118 mg/dL 0-149 Not Available [facility] ([facility]) [address] [place], [address], 08/16/2023 08:25:20 08/15/19 24 08/16/2023 LIPID PANEL HDL cholesterol 66 mg/dL >39 Not Available [facility] ([facility]) [address] [place], [address], 08/16/2023 08:25:20 08/15/19 24 08/16/2023 LIPID PANEL VLDL cholesterol declan 21 mg/dL 5-40 Not Available [facility] ([facility]) [address] [place], [address], 08/16/2023 08:25:20 08/15/19 24 08/16/2023 LIPID PANEL LDL chol calc ([facility]) 107 mg/dL 0-99 above high normal Not Available [facility] ([facility]) [address] [facility], [address], 08/16/2023 08:25:20 08/15/19 24 08/16/2023 COMP. METAB OLIC PANEL (14) glucose 104 mg/dL 70-99 above high normal Not Available [facility] ([facility]) [address] [facility] [place], [address], 08/16/2023 08:25:21 08/15/19 24 08/16/2023 COMP. METAB OLIC PANEL (14) BUN 19 mg/dL 8-27 Not Available [facility] ([facility]) [address] [facility] [place], [address], 08/16/2023 08:25:21 08/15/19 24 08/16/2023 COMP. METAB OLIC PANEL (14) creatinine 1.27 mg/dL 0.76-1 .27 Not Available [facility] ([facility]) [address] [facility] [place], [address], 08/16/2023 08:25:21 08/15/19 24 08/16/2023 COMP. METAB OLIC PANEL (14) eGFR 62 mL/mi n/1.7 3 >59 Not Available [facility] ([facility]) [address] [facility] [place], [address], 08/16/2023 08:25:21 08/15/19 24 08/16/2023 COMP. METAB OLIC PANEL (14) BUN/creatini ne ratio 15 10-24 Not Available [facility] ([facility]) [address] [place], [address], 08/16/2023 08:25:21 08/15/19 24 08/16/2023 COMP. METAB OLIC PANEL (14) sodium 139 mmol/ L 134-14 4 Not Available [facility] ([facility]) [address] [place], [address], 08/16/2023 08:25:21 08/15/19 24 08/16/2023 COMP. METAB OLIC PANEL (14) potassium 4.8 mmol/ L 3.5-5. 2 Not Available [facility] ([facility]) [address] [facility], [place], [address], 08/16/2023 08:25:21 08/15/19 24 08/16/2023 COMP. METAB OLIC PANEL (14) chloride 103 mmol/ L 96-106 Not Available [facility] ([facility]) [address] [facility], [place], [address], 08/16/2023 08:25:21 08/15/19 24 08/16/2023 COMP. METAB OLIC PANEL (14) carbon dioxide, total 22 mmol/ L 20-29 Not Available [facility] ([facility]) [address] [facility] [place], [address], 08/16/2023 08:25:21 08/15/19 24 08/16/2023 COMP. METAB OLIC PANEL (14) calcium 9.4 mg/dL 8.6-10 .2 Not Available [facility] ([facility]) [address] [facility], [place], [address], 08/16/2023 08:25:21 08/15/19 24 08/16/2023 COMP. METAB OLIC PANEL (14) protein, total 6.7 g/dL 6.0-8. 5 Not Available [facility] ([facility]) [address] [facility], [place], [address], 08/16/2023 08:25:21 08/15/19 24 08/16/2023 COMP. METAB OLIC PANEL (14) albumin 4.3 g/dL 3.9-4. 9 Not Available [facility] ([facility]) [address] [facility], [place], [address], 08/16/2023 08:25:21 08/15/19 24 08/16/2023 COMP. METAB OLIC PANEL (14) globulin, total 2.4 g/dL 1.5-4. 5 Not Available [facility] ([facility]) [address] [place], [address], 08/16/2023 08:25:21 08/15/19 24 08/16/2023 COMP. METAB OLIC PANEL (14) A/G ratio 1.8 1.2-2. 2 Not Available [facility] ([facility]) [address] [facility], [place], [address], 08/16/2023 08:25:21 08/15/19 24 08/16/2023 COMP. METAB OLIC PANEL (14) bilirubin, total 0.3 mg/dL 0.0-1. 2 Not Available [facility] ([facility]) [address] [place], [address], 08/16/2023 08:25:21 08/15/19 24 08/16/2023 COMP. METAB OLIC PANEL (14) alkaline phosphatase 63 IU/L 44-121 Not Available [facility] ([facility]) [address] [place], [address], 08/16/2023 08:25:21 08/15/19 24 08/16/2023 COMP. METAB OLIC PANEL (14) AST (SGOT) 17 IU/L 0-40 Not Available [facility] ([facility]) [address] [place], [address], 08/16/2023 08:25:21 08/15/19 24 08/16/2023 COMP. METAB OLIC PANEL (14) ALT (SGPT) 22 IU/L 0-44 Not Available [facility] ([facility]) [address] [place], [address], 08/16/2023 08:25:21 08/15/19 24 08/16/2023 CBC WITH DIFFE RENTI AL/PL ATELE T WBC 6.0 x10e3 /uL 3.4-10 .8 Not Available [facility] ([facility]) [address] [place], [address], 08/16/2023 08:25:22 08/15/19 24 08/16/2023 CBC WITH DIFFE RENTI AL/PL ATELE T RBC 4.43 x10e6 /uL 4.14-5 .80 Not Available [facility] ([facility]) [address] [facility], [place], [address], 08/16/2023 08:25:22 08/15/19 24 08/16/2023 CBC WITH DIFFE RENTI AL/PL ATELE T hemoglobin 13.8 g/dL 13.0-1 7.7 Not Available [facility] ([facility]) [address] [place], [address], 08/16/2023 08:25:22 08/15/19 24 08/16/2023 CBC WITH DIFFE RENTI AL/PL ATELE T hematocrit 40.5 % 37.5-5 1.0 Not Available [facility] ([facility]) [address] [place], [address], 08/16/2023 08:25:22 08/15/19 24 08/16/2023 CBC WITH DIFFE RENTI AL/PL ATELE T MCV 91 fL 79-97 Not Available [facility] ([facility]) [address] [place], [address], 08/16/2023 08:25:22 08/15/19 24 08/16/2023 CBC WITH DIFFE RENTI AL/PL ATELE T MCH 31.2 pg 26.6-3 3.0 Not Available [facility] ([facility]) [address] [place], [address], 08/16/2023 08:25:22 08/15/19 24 08/16/2023 CBC WITH DIFFE RENTI AL/PL ATELE T MCHC 34.1 g/dL 31.5-3 5.7 Not Available [facility] ([facility]) [address] [facility], [place], [address], 08/16/2023 08:25:22 08/15/19 24 08/16/2023 CBC WITH DIFFE RENTI AL/PL ATELE T RDW 12.4 % 11.6-1 5.4 Not Available [facility] ([facility]) [address] [facility], [place], [address], 08/16/2023 08:25:22 08/15/19 24 08/16/2023 CBC WITH DIFFE RENTI AL/PL ATELE T platelets 242 x10e3 /uL 150-45 0 Not Available [facility] ([facility]) [address] [facility], [place], [address], 08/16/2023 08:25:22 08/15/19 24 08/16/2023 CBC WITH DIFFE RENTI AL/PL ATELE T neutrophils 58 % notest ab. Not Available [facility] ([facility]) [address] [facility], [place], [address], 08/16/2023 08:25:22 08/15/19 24 08/16/2023 CBC WITH DIFFE RENTI AL/PL ATELE T lymphs 26 % notest ab. Not Available [facility] ([facility]) [address] [facility], [place], [address], 08/16/2023 08:25:22 08/15/19 24 08/16/2023 CBC WITH DIFFE RENTI AL/PL ATELE T monocytes 8 % notest ab. Not Available [facility] ([facility]) [address] [facility], [place], [address], 08/16/2023 08:25:22 08/15/19 24 08/16/2023 CBC WITH DIFFE RENTI AL/PL ATELE T eos 6 % notest ab. Not Available [facility] ([facility]) [address] [facility], [place], [address], 08/16/2023 08:25:22 08/15/19 24 08/16/2023 CBC WITH DIFFE RENTI AL/PL ATELE T basos 1 % notest ab. Not Available [facility] ([facility]) [address] [facility], [place], [address], 08/16/2023 08:25:22 08/15/19 24 08/16/2023 CBC WITH DIFFE RENTI AL/PL ATELE T neutrophils (absolute) 3.6 x10e3 /uL 1.4-7. 0 Not Available [facility] ([facility]) [address] [facility], [place], [address], 08/16/2023 08:25:22 08/15/19 24 08/16/2023 CBC WITH DIFFE RENTI AL/PL ATELE T lymphs (absolute) 1.6 x10e3 /uL 0.7-3. 1 Not Available [facility] ([facility]) [address] [facility], [place], [address], 08/16/2023 08:25:22 08/15/19 24 08/16/2023 CBC WITH DIFFE RENTI AL/PL ATELE T monocytes(ab solute) 0.5 x10e3 /uL 0.1-0. 9 Not Available [facility] ([facility]) [address] [facility], [place], [address], 08/16/2023 08:25:22 08/15/19 24 08/16/2023 CBC WITH DIFFE RENTI AL/PL ATELE T eos (absolute) 0.3 x10e3 /uL 0.0-0. 4 Not Available [facility] ([facility]) [address] [facility], [place], [address], 08/16/2023 08:25:22 08/15/19 24 08/16/2023 CBC WITH DIFFE RENTI AL/PL ATELE T baso (absolute) 0.0 x10e3 /uL 0.0-0. 2 Not Available [facility] ([facility]) [address] [facility], [place], [address], 08/16/2023 08:25:22 08/15/19 24 08/16/2023 CBC WITH DIFFE RENTI AL/PL ATELE T immature granulocytes 1 % notest ab. Not Available [facility] ([facility]) [address] [facility], [place], [address], 08/16/2023 08:25:22 08/15/19 24 08/16/2023 CBC WITH DIFFE RENTI AL/PL ATELE T immature grans (abs) 0.1 x10e3 /uL 0.0-0. 1 Not Available [facility] ([facility]) [address] [facility], [place], [address], 08/16/2023 08:25:22 08/15/19 24 08/16/2023 PROST ATE-S PECIF IC AG prostate specific Ag 1.5 NG/mL 0.0-4. 0 Rachael ECLIA metho dolog y. Accor ding to the Ameri can [employer] g[employer] iatio n, Serum PSA shoul d decre ase and remai n at undet ectab le level s after radic al prost atect haroon. The AUA defin es bioch emica l recur rence as an initi al PSA value 0.2 ng/mL or great er follo wed by a subse quent confi rmato ry PSA value 0.2 ng/mL or great er. Value s obtai michele with diffe rent assay metho ds or kits canno t be used inter huffman eably . Resul ts canno t be inter prete d as absol gavin evide nce of the prese nce or absen ce of payam kca se. Not Available [facility] ([facility]) [address] [facility], [place], [address], 08/16/2023 08:25:22 10/04/02/10/2024 LIPID PANEL cholesterol, total 161 mg/dL 100-19 9 Not Available [facility] ([facility]) [address] [place], [address], 02/10/2024 08:36:56 02/09/2002/10/2024 LIPID PANEL triglyceride s 84 mg/dL 0-149 Not Available [facility] ([facility]) [address] [place], [address], 02/10/2024 08:36:56 02/09/2002/10/2024 LIPID PANEL HDL cholesterol 50 mg/dL >39 Not Available [facility] ([facility]) [address] [place], [address], 02/10/2024 08:36:56 02/09/2002/10/2024 LIPID PANEL VLDL cholesterol declan 16 mg/dL 5-40 Not Available [facility] ([facility]) [address] [place], [address], 02/10/2024 08:36:56 02/09/2002/10/2024 LIPID PANEL LDL chol calc ([facility]) 95 mg/dL 0-99 Not Available [facility] ([facility]) [address] [place], [address], 02/10/2024 08:36:56 02/09/2002/10/2024 COMP. METAB OLIC PANEL (14) glucose 104 mg/dL 70-99 above high normal Not Available [facility] ([facility]) [address] [place], [address], 02/10/2024 08:36:57 02/09/2002/10/2024 COMP. METAB OLIC PANEL (14) BUN 21 mg/dL 8-27 Not Available [facility] ([facility]) [address] [place], [address], 02/10/2024 08:36:57 02/09/2028 0202/10/2024 COMP. METAB OLIC PANEL (14) creatinine 1.36 mg/dL 0.76-1 .27 above high normal Not Available [facility] ([facility]) [address] [facility], [place], [address], 02/10/2024 08:36:57 02/09/20 24 02/10/2024 COMP. METAB OLIC PANEL (14) eGFR 57 mL/mi n/1.7 3 >59 below low normal Not Available [facility] ([facility]) [address] [facility], [place], [address], 02/10/2024 08:36:57 02/09/2002/10/2024 COMP. METAB OLIC PANEL (14) BUN/creatini ne ratio 15 10-24 Not Available [facility] ([facility]) [address] [facility], [place], [address], 02/10/2024 08:36:57 02/09/2002/10/2024 COMP. METAB OLIC PANEL (14) sodium 141 mmol/ L 134-14 4 Not Available [facility] ([facility]) [address] [place], [address], 02/10/2024 08:36:57 02/09/20 24 02/10/2024 COMP. METAB OLIC PANEL (14) potassium 4.6 mmol/ L 3.5-5. 2 Not Available [facility] ([facility]) [address] [facility], [place], [address], 02/10/2024 08:36:57 02/09/2002/10/2024 COMP. METAB OLIC PANEL (14) chloride 105 mmol/ L 96-106 Not Available [facility] ([facility]) [address] [place], [address], 02/10/2024 08:36:57 02/09/20 24 02/10/2024 COMP. METAB OLIC PANEL (14) carbon dioxide, total 22 mmol/ L 20-29 Not Available [facility] ([facility]) [address] [facility], [place], [address], 02/10/2024 08:36:57 02/09/2002/10/2024 COMP. METAB OLIC PANEL (14) calcium 9.1 mg/dL 8.6-10 .2 Not Available [facility] ([facility]) [address] [facility], [place], [address], 02/10/2024 08:36:57 02/09/2002/10/2024 COMP. METAB OLIC PANEL (14) protein, total 6.6 g/dL 6.0-8. 5 Not Available [facility] ([facility]) [address] [facility], [place], [address], 02/10/2024 08:36:57 02/09/2002/10/2024 COMP. METAB OLIC PANEL (14) albumin 4.2 g/dL 3.9-4. 9 Not Available [facility] ([facility]) [address] [facility], [place], [address], 02/10/2024 08:36:57 02/09/2002/10/2024 COMP. METAB OLIC PANEL (14) globulin, total 2.4 g/dL 1.5-4. 5 Not Available [facility] ([facility]) [address] [facility], [place], [address], 02/10/2024 08:36:57 02/09/2002/10/2024 COMP. METAB OLIC PANEL (14) bilirubin, total 0.4 mg/dL 0.0-1. 2 Not Available [facility] ([facility]) [address] [facility], [place], [address], 02/10/2024 08:36:57 02/09/20 24 02/10/2024 COMP. METAB OLIC PANEL (14) alkaline phosphatase 64 IU/L 44-121 Not Available [facility] ([facility]) [address] [facility], [place], [address], 02/10/2024 08:36:57 02/09/2002/10/2024 COMP. METAB OLIC PANEL (14) AST (SGOT) 17 IU/L 0-40 Not Available [facility] ([facility]) [address] [facility], [place], [address], 02/10/2024 08:36:57 02/09/2002/10/2024 COMP. METAB OLIC PANEL (14) ALT (SGPT) 16 IU/L 0-44 Not Available [facility] ([facility]) [address] [facility], [place], [address], 02/10/2024 08:36:57 02/09/20 24 02/10/2024 CBC WITH DIFFE RENTI AL/PL ATELE T WBC 5.9 x10e3 /uL 3.4-10 .8 Not Available [facility] ([facility]) [address] [facility], [place], [address], 02/10/2024 08:36:58 02/09/2002/10/2024 CBC WITH DIFFE RENTI AL/PL ATELE T RBC 4.60 x10e6 /uL 4.14-5 .80 Not Available [facility] ([facility]) [address] [facility], [place], [address], 02/10/2024 08:36:58 02/09/2002/10/2024 CBC WITH DIFFE RENTI AL/PL ATELE T hemoglobin 14.5 g/dL 13.0-1 7.7 Not Available [facility] ([facility]) [address] [facility], [place], [address], 02/10/2024 08:36:58 02/09/20 24 02/10/2024 CBC WITH DIFFE RENTI AL/PL ATELE T hematocrit 42.8 % 37.5-5 1.0 Not Available [facility] ([facility]) [address] [facility], [place], [address], 02/10/2024 08:36:58 02/09/2002/10/2024 CBC WITH DIFFE RENTI AL/PL ATELE T MCV 93 fL 79-97 Not Available [facility] ([facility]) [address] [facility], [place], [address], 02/10/2024 08:36:58 02/09/2002/10/2024 CBC WITH DIFFE RENTI AL/PL ATELE T MCH 31.5 pg 26.6-3 3.0 Not Available [facility] ([facility]) [address] [facility], [place], [address], 02/10/2024 08:36:58 02/09/2002/10/2024 CBC WITH DIFFE RENTI AL/PL ATELE T MCHC 33.9 g/dL 31.5-3 5.7 Not Available [facility] ([facility]) [address] [facility], [place], [address], 02/10/2024 08:36:58 02/09/2002/10/2024 CBC WITH DIFFE RENTI AL/PL ATELE T RDW 12.7 % 11.6-1 5.4 Not Available [facility] ([facility]) [address] [facility], [place], [address], 02/10/2024 08:36:58 02/09/2002/10/2024 CBC WITH DIFFE RENTI AL/PL ATELE T platelets 254 x10e3 /uL 150-45 0 Not Available [facility] ([facility]) [address] [facility], [place], [address], 02/10/2024 08:36:58 02/09/2002/10/2024 CBC WITH DIFFE RENTI AL/PL ATELE T neutrophils 59 % notest ab. Not Available [facility] ([facility]) [address] [facility], [place], [address], 02/10/2024 08:36:58 02/09/2002/10/2024 CBC WITH DIFFE RENTI AL/PL ATELE T lymphs 27 % notest ab. Not Available [facility] ([facility]) [address] [facility], [place], [address], 02/10/2024 08:36:58 02/09/2002/10/2024 CBC WITH DIFFE RENTI AL/PL ATELE T monocytes 8 % notest ab. Not Available [facility] ([facility]) [address] [facility], [place], [address], 02/10/2024 08:36:58 02/09/2002/10/2024 CBC WITH DIFFE RENTI AL/PL ATELE T eos 4 % notest ab. Not Available [facility] ([facility]) [address] [facility], [place], [address], 02/10/2024 08:36:58 02/09/2002/10/2024 CBC WITH DIFFE RENTI AL/PL ATELE T basos 1 % notest ab. Not Available [facility] ([facility]) [address] [place], [address], 02/10/2024 08:36:58 02/09/2002/10/2024 CBC WITH DIFFE RENTI AL/PL ATELE T neutrophils (absolute) 3.5 x10e3 /uL 1.4-7. 0 Not Available [facility] ([facility]) [address] [facility], [place], [address], 02/10/2024 08:36:58 02/09/2002/10/2024 CBC WITH DIFFE RENTI AL/PL ATELE T lymphs (absolute) 1.6 x10e3 /uL 0.7-3. 1 Not Available [facility] ([facility]) [address] [facility], [place], [address], 02/10/2024 08:36:58 02/09/2002/10/2024 CBC WITH DIFFE RENTI AL/PL ATELE T monocytes(ab solute) 0.5 x10e3 /uL 0.1-0. 9 Not Available [facility] ([facility]) [address] [facility], [place], [address], 02/10/2024 08:36:58 02/09/2002/10/2024 CBC WITH DIFFE RENTI AL/PL ATELE T eos (absolute) 0.2 x10e3 /uL 0.0-0. 4 Not Available [facility] ([facility]) [address] [facility], [place], [address], 02/10/2024 08:36:58 02/09/2002/10/2024 CBC WITH DIFFE RENTI AL/PL ATELE T baso (absolute) 0.0 x10e3 /uL 0.0-0. 2 Not Available [facility] ([facility]) [address] [facility], [place], [address], 02/10/2024 08:36:58 02/09/2002/10/2024 CBC WITH DIFFE RENTI AL/PL ATELE T immature granulocytes 1 % notest ab. Not Available [facility] ([facility]) [address] [facility], [place], [address], 02/10/2024 08:36:58 02/09/20 24 02/10/2024 CBC WITH DIFFE RENTI AL/PL ATELE T immature grans (abs) 0.0 x10e3 /uL 0.0-0. 1 Not Available [facility] ([facility]) [address] [facility], [place], [address], 02/10/2024 08:36:58 08/28/19 25 08/28/2024 LIPID PANEL cholesterol, total 160 mg/dL 100-19 9 Not Available [facility] ([facility]) [address] [place], [address], 08/28/2024 06:45:10 08/28/19 25 08/28/2024 LIPID PANEL triglyceride s 104 mg/dL 0-149 Not Available [facility] ([facility]) [address] [facility], [place], [address], 08/28/2024 06:45:10 08/28/19 25 08/28/2024 LIPID PANEL HDL cholesterol 47 mg/dL >39 Not Available [facility] ([facility]) [address] [facility], [place], [address], 08/28/2024 06:45:10 08/28/19 25 08/28/2024 LIPID PANEL VLDL cholesterol declan 19 mg/dL 5-40 Not Available [facility] ([facility]) [address] [place], [address], 08/28/2024 06:45:10 08/28/19 25 08/28/2024 LIPID PANEL LDL chol calc ([facility]) 94 mg/dL 0-99 Not Available [facility] ([facility]) [address] [place], [address], 08/28/2024 06:45:10 08/28/19 25 08/28/2024 COMP. METAB OLIC PANEL (14) glucose 101 mg/dL 70-99 above high normal Not Available [facility] ([facility]) [address] [place], [address], 08/28/2024 06:45:12 08/28/19 25 08/28/2024 COMP. METAB OLIC PANEL (14) BUN 21 mg/dL 8-27 Not Available [facility] ([facility]) [address] [place], [address], 08/28/2024 06:45:12 08/28/19 25 08/28/2024 COMP. METAB OLIC PANEL (14) creatinine 1.40 mg/dL 0.76-1 .27 above high normal Not Available [facility] ([facility]) [address] [place], [address], 08/28/2024 06:45:12 08/28/19 25 08/28/2024 COMP. METAB OLIC PANEL (14) eGFR 55 mL/mi n/1.7 3 >59 below low normal Not Available [facility] ([facility]) [address] [place], [address], 08/28/2024 06:45:12 08/28/19 25 08/28/2024 COMP. METAB OLIC PANEL (14) BUN/creatini ne ratio 15 10-24 Not Available [facility] ([facility]) [address] [place], [address], 08/28/2024 06:45:12 08/28/19 25 08/28/2024 COMP. METAB OLIC PANEL (14) sodium 139 mmol/ L 134-14 4 Not Available [facility] ([facility]) [address] [place], [address], 08/28/2024 06:45:12 08/28/19 25 08/28/2024 COMP. METAB OLIC PANEL (14) potassium 4.7 mmol/ L 3.5-5. 2 Not Available [facility] ([facility]) [address] [facility] [place], [address], 08/28/2024 06:45:12 08/28/19 25 08/28/2024 COMP. METAB OLIC PANEL (14) chloride 102 mmol/ L 96-106 Not Available [facility] ([facility]) [address] [facility] [place], [address], 08/28/2024 06:45:12 08/28/19 25 08/28/2024 COMP. METAB OLIC PANEL (14) carbon dioxide, total 22 mmol/ L 20-29 Not Available [facility] ([facility]) [address] [facility] [place], [address], 08/28/2024 06:45:12 08/28/19 25 08/28/2024 COMP. METAB OLIC PANEL (14) calcium 9.2 mg/dL 8.6-10 .2 Not Available [facility] ([facility]) [address], [place], [address], 08/28/2024 06:45:12 08/28/19 25 08/28/2024 COMP. METAB OLIC PANEL (14) protein, total 6.8 g/dL 6.0-8. 5 Not Available [facility] ([facility]) [address], [place], [address], 08/28/2024 06:45:12 08/28/19 25 08/28/2024 COMP. METAB OLIC PANEL (14) albumin 4.4 g/dL 3.9-4. 9 Not Available [facility] ([facility]) [address] [facility], [place], [address], 08/28/2024 06:45:12 08/28/19 25 08/28/2024 COMP. METAB OLIC PANEL (14) globulin, total 2.4 g/dL 1.5-4. 5 Not Available [facility] ([facility]) [address] [facility], [place], [address], 08/28/2024 06:45:12 08/28/19 25 08/28/2024 COMP. METAB OLIC PANEL (14) bilirubin, total 0.5 mg/dL 0.0-1. 2 Not Available [facility] ([facility]) [address] [facility], [place], [address], 08/28/2024 06:45:12 08/28/19 25 08/28/2024 COMP. METAB OLIC PANEL (14) alkaline phosphatase 72 IU/L 44-121 Not Available [facility] ([facility]) [address] [facility], [place], [address], 08/28/2024 06:45:12 04/22/20 25 08/28/2024 COMP. METAB OLIC PANEL (14) AST (SGOT) 16 IU/L 0-40 Not Available [facility] ([facility]) [address] [facility] [place], [address], 08/28/2024 06:45:12 08/28/19 25 08/28/2024 COMP. METAB OLIC PANEL (14) ALT (SGPT) 16 IU/L 0-44 Not Available [facility] ([facility]) [address] [facility], [place], [address], 08/28/2024 06:45:12 08/28/19 25 08/27/2024 CBC WITH DIFFE RENTI AL/PL ATELE T WBC 6.9 x10e3 /uL 3.4-10 .8 Not Available [facility] ([facility]) [address] [facility] [place], [address], 08/28/2024 06:45:13 08/28/19 25 08/27/2024 CBC WITH DIFFE RENTI AL/PL ATELE T RBC 4.59 x10e6 /uL 4.14-5 .80 Not Available [facility] ([facility]) [address] [place], [address], 08/28/2024 06:45:13 08/28/19 25 08/27/2024 CBC WITH DIFFE RENTI AL/PL ATELE T hemoglobin 14.1 g/dL 13.0-1 7.7 Not Available [facility] ([facility]) [address] [facility] [place], [address], 08/28/2024 06:45:13 08/28/19 25 08/27/2024 CBC WITH DIFFE RENTI AL/PL ATELE T hematocrit 42.8 % 37.5-5 1.0 Not Available [facility] ([facility]) [address] [facility] [place], [address], 08/28/2024 06:45:13 08/28/19 25 08/27/2024 CBC WITH DIFFE RENTI AL/PL ATELE T MCV 93 fL 79-97 Not Available [facility] ([facility]) [address] [facility], [place], [address], 08/28/2024 06:45:13 08/28/19 25 08/27/2024 CBC WITH DIFFE RENTI AL/PL ATELE T MCH 30.7 pg 26.6-3 3.0 Not Available [facility] ([facility]) [address] [facility], [place], [address], 08/28/2024 06:45:13 08/28/19 25 08/27/2024 CBC WITH DIFFE RENTI AL/PL ATELE T MCHC 32.9 g/dL 31.5-3 5.7 Not Available [facility] ([facility]) [address] [place], [address], 08/28/2024 06:45:13 08/28/19 25 08/27/2024 CBC WITH DIFFE RENTI AL/PL ATELE T RDW 12.4 % 11.6-1 5.4 Not Available [facility] ([facility]) [address] [facility], [place], [address], 08/28/2024 06:45:13 08/28/19 25 08/27/2024 CBC WITH DIFFE RENTI AL/PL ATELE T platelets 259 x10e3 /uL 150-45 0 Not Available [facility] ([facility]) [address] [place], [address], 08/28/2024 06:45:13 08/28/19 25 08/27/2024 CBC WITH DIFFE RENTI AL/PL ATELE T neutrophils 66 % notest ab. Not Available [facility] ([facility]) [address] [place], [address], 08/28/2024 06:45:13 08/28/19 25 08/27/2024 CBC WITH DIFFE RENTI AL/PL ATELE T lymphs 20 % notest ab. Not Available [facility] ([facility]) [address] [facility], [place], [address], 08/28/2024 06:45:13 08/28/19 25 08/27/2024 CBC WITH DIFFE RENTI AL/PL ATELE T monocytes 9 % notest ab. Not Available [facility] ([facility]) [address] [facility], [place], [address], 08/28/2024 06:45:13 08/28/19 25 08/27/2024 CBC WITH DIFFE RENTI AL/PL ATELE T eos 4 % notest ab. Not Available [facility] ([facility]) [address] [facility], [place], [address], 08/28/2024 06:45:13 08/28/19 25 08/27/2024 CBC WITH DIFFE RENTI AL/PL ATELE T basos 0 % notest ab. Not Available [facility] ([facility]) [address] [facility], [place], [address], 08/28/2024 06:45:13 08/28/19 25 08/27/2024 CBC WITH DIFFE RENTI AL/PL ATELE T neutrophils (absolute) 4.5 x10e3 /uL 1.4-7. 0 Not Available [facility] ([facility]) [address] [place], [address], 08/28/2024 06:45:13 08/28/19 25 08/27/2024 CBC WITH DIFFE RENTI AL/PL ATELE T lymphs (absolute) 1.4 x10e3 /uL 0.7-3. 1 Not Available [facility] ([facility]) [address] [facility], [place], [address], 08/28/2024 06:45:13 08/28/19 25 08/27/2024 CBC WITH DIFFE RENTI AL/PL ATELE T monocytes(ab solute) 0.6 x10e3 /uL 0.1-0. 9 Not Available [facility] ([facility]) [address] [facility], [place], [address], 08/28/2024 06:45:13 08/28/19 25 08/27/2024 CBC WITH DIFFE RENTI AL/PL ATELE T eos (absolute) 0.3 x10e3 /uL 0.0-0. 4 Not Available [facility] ([facility]) [address] [place], [address], 08/28/2024 06:45:13 08/28/19 25 08/27/2024 CBC WITH DIFFE RENTI AL/PL ATELE T baso (absolute) 0.0 x10e3 /uL 0.0-0. 2 Not Available [facility] ([facility]) [address] [place], [address], 08/28/2024 06:45:13 08/28/19 25 08/27/2024 CBC WITH DIFFE RENTI AL/PL ATELE T immature granulocytes 1 % notest ab. Not Available [facility] ([facility]) [address] [place], [address], 08/28/2024 06:45:13 08/28/19 25 08/27/2024 CBC WITH DIFFE RENTI AL/PL ATELE T immature grans (abs) 0.0 x10e3 /uL 0.0-0. 1 Not Available [facility] ([facility]) [address] [place], [address], 08/28/2024 06:45:13 08/28/19 25 08/28/2024 PROST ATE-S PECIF IC AG prostate specific Ag 1.3 NG/mL 0.0-4. 0 Rachael ECLIA metho dolog y. Accor ding to the Ameri can [employer] g[employer] iatio n, Serum PSA shoul d decre ase and remai n at undet ectab le level s after radic al prost atect haroon. The AUA defin es bioch emica l recur rence as an initi al PSA value 0.2 ng/mL or great er follo wed by a subse quent confi rmato ry PSA value 0.2 ng/mL or great er. Value s obtai michele with diffe rent assay metho ds or kits canno t be used inter huffman eably . Resul ts canno t be inter prete d as absol gavin evide nce of the prese nce or absen ce of payam kc se. Not Available [facility] ([facility]) [address] [facility], [place], [address], 08/28/2024 06:45:14 Result Notes None recorded. Problems Name Problem SNOMED Code Status Onset Date Resolution Date Notes Provider Name and Address Organization Details Recorded Time Essential hypertension 29123408 Active 2023 FRANCINE Love, [place] - [facility] 4 11:00:03 Screening for malignant neoplasm of prostate Active 2023 FR[place] [facility] 4 11:00:05 Anxiety 99520158 Active 2023 FR[place]INE [place] [facility] 4 11:00:06 Hyperlipidemia 52297729 Active 2023 FRANCINE [place] [facility] 4 11:00:07 Problem Notes None recorded. Procedures Surgical History Date Name Laterality Status Provider Name and Address Organization Details Recorded Time Knee Surgery completed FRANCINE Hung [facility] 07/18/2023 11:27:51 Knee arthroscopy/ward rgery completed FRANCINE Hung 07/18/2023 11:28:24 Shoulder joint surgery completed FRANCINE Hung [facility] 07/18/2023 11:28:49 Imaging Results None recorded. Procedure Notes None recorded. Medical Equipment None Reported. Allergies No known drug allergies Medications Name Sig Start Date Stop Date Status Note LastModified by Organization Details LastModified Time carvedilol 6.25 mg tablet TAKE 1 AND 1/2 TABLETS BY MOUTH TWICE DAILY active Not Available Not Available No t Available atorvastatin 20 mg tablet TAKE 1 TABLET BY MOUTH EVERY DAY 2024 active Not Available Not Available Not Avai lable alprazolam 1 mg tablet TAKE 1 TABLET BY MOUTH TWICE A DAY active Not Available Not Available No t Available sildenafil 100 mg tablet TAKE 1 TABLET BY MOUTH 30 MINS BEFORE SEXUAL ACTIVITY . NO MORE THAN 1 TAB/24 HOURS active Not Available Not Available No t Available amlodipine 10 mg tablet TAKE 1 TABLET BY MOUTH EVERY DAY 2024 active Not Available Not Available Not Avai lable nitroglycerin 0.[address] ONE TABLET UNDER TONGUE NEEDED FOR CHEST PAIN active Not Available Not Available No t Available amoxicillin 875 mg-potassium clavulanate 125 mg tablet Take 1 tablet every 12 hours by oral route for 10 days. 2024 active Not Available Not Available Not Avai lable Vitals Date Recorded Body height Body mass index (BMI) Body weight Body temperature Oxygen saturation Oxygen saturation in Arterial blood by Pulse oximetry Heart rate Systolic And Diastolic Provider Name and Address Organization Details Last Updated DateTime 4 193.04 cm 29.8 kg/m2 121422. 13 g 98.2 [degF] 99 % 99 % 54 /min 138/84 mm[Hg] Fozia Samaniego [place] [facility] 4 11:34:06 Date Recorded Body height Body mass index (BMI) Body weight Heart rate Oxygen saturation Oxygen saturation in Arterial blood by Pulse oximetry Systolic And Diastolic Provider Name and Address Organization Details Last Updated DateTime 5 193.04 cm 30.7 kg/m2 512495. 28 g 62 /min 99 % 99 % 120/72 mm[Hg] Jaylene Almonte MA [facility] 5 10:40:11 Date Recorded Body height Body mass index (BMI) Body weight Heart rate Oxygen saturation Oxygen saturation in Arterial blood by Pulse oximetry Systolic And Diastolic Provider Name and Address Organization Details Last Updated DateTime 4 193.04 cm 30.5 kg/m2 603837. 25 g 64 /min 98 % 98 % 120/62 mm[Hg] Pamela Solano MA [facility] 4 10:20:10 Social History Question Answer Notes LastModified by Organizat ion Details LastModified Time Tobacco Smoking Status Never Smoker Fozia Samaniego MA [facility], [place] - [facility] 07/18/2023 11:24:45 Do You Have An Advance Directive? Yes POA Whitney Information not available 07/18/2023 Are You Blind Or Do You Have Difficulty Seeing? No Information not available 07/18/2023 What Is Your Level Of Caffeine Consumption? Occasional Information not available 07/18/2023 In The 14 Days Before Symptom Onset, Have You Had Close Contact With A Laboratory-confir med COVID-19 While That Case Was Ill? No Information not available 01/24/2024 In The 14 Days Before Symptom Onset, Have You Had Close Contact With A Person Who Is Under Investigation For COVID-19 While That Person Was Ill? No Information not available 01/24/2024 Have You Been To An Area Known To Be High Risk For COVID-19? No Information not available 01/24/2024 Are You Deaf Or Do You Have Serious Difficulty Hearing? No Information not available 07/18/2023 What Type Of Diet Are You Following? REGULAR Information not available 07/18/2023 Are There Any Guns Present In Your Home? No Information not available 01/24/2024 What Was The Date Of Your Most Recent Tobacco Screening? 08/27/2024 Information not available 08/27/2024 What Is Your Relationship Status? Information not available 07/18/2023 Do You Use Your Seat Belt Or Car Seat Routinely? Yes Information not available 07/18/2023 Do You Have Smoke And Carbon Monoxide Detectors In Your Home? Yes Information not available 07/18/2023 Do You Use Sunscreen Routinely? Yes Information not available 07/18/2023 Has Tobacco Cessation Counseling Been Provided? No Information not available 01/24/2024 On What Date Was Tobacco Cessation Counseling Provided? 08/27/2024 Information not available 08/27/2024 Sex: Male Functional Status Question Answer Note LastModified by Organizat ion Details LastModified Time Do you use any illicit or recreational drugs? No Information not available 07/18/2023 Do you or have you ever used any other forms of tobacco or nicotine? No Information not available 07/18/2023 What is your level of alcohol consumption? Occasional Information not available 07/18/2023 Are you currently employed? No retired Information not available 07/18/2023 Are you able to care for yourself? Yes Information not available 07/18/2023 What is your exercise level? Moderate Information not available 07/18/2023 Mental Status Question Answer Note LastModified by Organization D etails LastModified Time Do you feel stressed (tense, restless, nervous, or anxious, or unable to sleep at night)? [id number] Information not available 01/24/2024 Family History Relationship Description Onset Age of this Age Resolved Age Notes LastModified by Organization Details LastModified Time Mother Congestive heart failure 78 [email or web address] Not available 07/06 11:23:57 Mother Kidney disease 78 [email or web address] Not available 07/06 11:24:12 Medical History Condition Response Anxiety Disorder Y Diabetes N Coronary Artery Disease N Atrial Fibrillation N High Blood Pressure N Seizures/Epilepsy N Have you had a colonoscopy in the last 1 0 years? Y Cancer N Stroke N Thyroid Problems N Kidney or Bladder Problems N Asthma N GI Problems N Blood Clots N COPD N Depression N Have you had a PSA blood test in the las t year? N High Cholesterol Y Hepatitis N Liver Disease N Heart Attack ([place]) N Heart Failure N Immunizations Vaccine Type Date Status Note Provider Nam e and Address Organization Details Recorded Time Influenza, split virus, quadrivalent, preservative 7 completed FR[place] [facility] 08/27/2024 09:02:13 Influenza, high-dose, quadrivalent, PF 2 completed [place] [facility] 08/27/2024 09:02:13 COVID-19, mRNA, LNP-S, PF, 100 mcg/0.5mL dose or 50 mcg/0.25mL dose 1 [place] [facility] 08/27/2024 09:02:13 COVID-19, mRNA, LNP-S, PF, 100 mcg/0.5mL dose or 50 mcg/0.25mL dose 1 [place] [facility] 08/27/2024 09:02:13 COVID-19, mRNA, LNP-S, PF, 30 mcg/0.3 mL dose 1 completed [place] [facility] 08/27/2024 09:02:13 influenza, unspecified formulation 8 completed [place] [facility] 08/27/2024 09:02:13 Pneumococcal conjugate PCV 13 2 completed [place] [facility] 08/27/2024 09:02:13 Influenza, split virus, quadrivalent, PF 1 completed [place] [facility] 08/27/2024 09:02:13 Influenza, split virus, quadrivalent, PF 6 completed [place] [facility] 08/27/2024 09:02:13 Influenza, high-dose, trivalent, PF 4 completed Kailey Kunz MD Attn: Accounting,[address] [place], [address], [place] [facility] 02/03/2024 15:04:15 Past Encounters Encounter ID Performer Location Encounter Start Date Encounter Closed Date Diagnosis/Indication Diagnosis SNOMED-CT Code Diagnosis ICD10 Code Diagnosis Note [id number] [facility] [address] [place] [phone] 07/18/2023 11:05:42 07/18/2023 12:03:29 Essential hypertension 28945896 I10 Screening for malignant neoplasm of prostate 696018659 Z12.5 Anxiety 02968157 F41.9 Hyperlipidemia 44582748 E78.5 [id number] Kailey Kunz MD [facility] (Adult Med) [address] [place] [phone] 01/24/2024 09:54:55 01/24/2024 11:02:01 Essential hypertension 65026090 I10 Anxiety 54756753 F41.9 Hyperlipidemia 25343890 E78.5 Administra tion of influenza vaccine 69968945 Z23 [id number] Kailey Kunz MD [facility] (Adult Med) [address] [place] [phone] 08/27/2024 10:25:08 08/27/2024 11:11:28 Body mass index 30+ - obesity 379384258 Z68.30 Overweight 481447240 E66 .3 Essential hypertension 60713416 I10 Hyperlipidemia 96946978 E78.5 Screening for malignant neoplasm of prostate 267353163 Z12.5 Anxiety 16715599 F41.9 Health Concerns Section Related Observation LastModified by Organization Detai ls LastModified Time None Recorded Concern Status LastModified by Organization Details LastModified Time None Recorded Advance Directives Directive Y: POA Whitney Payers Encounter Date Sequence Insurance Name Policy Number Policy Covarrubias Covered Member ID Covarrubias Member ID Guarantor Name 07/18/2023 1 [employer] - PRIME (MEDICARE REPLACEMENT/ ADVANTAGE - HMO) [id number] Reno Lamas Ye [id number] Reno Belcher 01/24/2024 1 [employer] - [employer]IME (MEDICARE REPLACEMENT/ ADVANTAGE - HMO) [id number] Reno Lamas Ye [id number] Reno Belcher 08/27/2024 1 [employer] - PRIME (MEDICARE REPLACEMENT/ ADVANTAGE - HMO) [id number] Reno Orourkeher [id number] Reno Ye Notes Date Note Type Note Provider Name and Address Organization Details Recorded Time 07/18/2023 text/html Hypertension no chest pain shortness of palpitations. Anxiety doing well on current medical regimen. Dyslipidemia takes atorvastatin and watch his diet. Erectile dysfunction Kailey Kunz MD Attn: Accounting,[address] [facility], [place], [address], [facility] 07/22/2023 22:57:52 01/24/2024 text/html hypertension no headache no dizziness blood pressure well controlled. Anxiety stable on current medical regimen maybe a little bit high he has got a [id number] who has a very serious probable terminal cancer diagnosis. Hyperlipidemia is trying to follow a low-fat diet the best that he can. Kailey Kunz MD Attn: Accounting,[address], [place], [address], [facility] 02/03/2024 15:05:58 08/27/2024 text/html Hypertension no chest pain shortness of palpitations. Anxiety doing well on current medical regimen. Dyslipidemia takes atorvastatin and watch his diet. Erectile dysfunction Kailey Kunz MD Attn: Accounting,[address], [place], [address], [facility] 09/01/2024 16:43:04
--- OUTSIDE RECORDS SUMMARY | 2024-10-01 13:05 | XMS_ITS | Data Portability ---
Author Organization [place] - [facility] [employer], Main Office Address [address] [place] [address] Assessment Encounter Date Assessment Date Assessment LastModified by Organization Details LastModified Time 09/14/2022 09/14/2022 Continue current therapy Blood work ordered Diagnosis in assessment plan discussed Follow-up 6 months [email or web address] Not available 09/14/2022 22:46:35 03/08/2023 03/08/2023 Continue with current therapy and follow up in 6 months blood work ordered [email or web address] Not available 03/11/2023 11:26:38 Plan of Treatment Reminders Order Date Submit Date Provider Last Modified By Organization Details Last Modified Time Details Appointments None recorded . Lab PSA, total, serum or plasma 023 03/08/[address] (Lab), [address] [place], [address], 4 18:41:41 CMP, serum or plasma 023 03/08/[address] (Lab), [address] [place], [address], 4 18:41:41 lipid panel, serum 023 03/08/[address] (Lab), [address] [place], [address], 4 18:41:41 CBC w/ auto diff 023 03/08/[address] (Lab), [address] [place], [address], 4 18:41:41 CBC w/ auto diff 023 09/15/19 23 [facility] (Lab), [address] [place], [address], 3 12:41:32 lipid panel, serum 023 09/15/19 [facility] (Lab), [address] [place], [address], 3 14:18:12 CMP, serum or plasma 023 09/15/19 [facility] (Lab), [address] [place], [address], 3 14:18:12 Referral None recorded . Procedures None recorded . Surgeries None recorded . Imaging None recorded . Medication Orders Viagra 100 mg tablet 023 09/15/19 23 [id number], [address] [place], [place], [id number], 3 12:33:17 Patient TargetsNo targets recorded. Patient InstructionsNo instructions recorded. Reason for Referral None Reported. Results Created Date Observation Date Name Description Value Unit Range Abnormal Flag Note LastModifiedBy Organization Detail LastModifiedTime 10/22/19 22 10/21/2021 PSA SCREE N PSA medicare screen 1.40 NG/mL 0.00-4 .00 Not Available [facility] (Lab) [address] [place], [address], 10/21/2021 13:25:15 10/22/19 22 10/21/2021 LIPID PANEL cholesterol 191 mg/dL 140-19 9 NIH PARAMJIT NSUS RECOM MENDA TION FOR BRIAN STERO L: ADULT CHILD LOW RISK: <200 <170 BORDE RLINE : <200- 239 ----- HIGH RISK: >240 >200 Not Available [facility] (Lab) [address] [place], [address], 10/21/2021 12:59:09 10/22/19 22 10/21/2021 LIPID PANEL triglyceride s 92 mg/dL 0-150 NIH PARAMJIT NSUS REPOR T RECOM MENDA TION FOR TRIGL YCERI ANNA: ADULT CHILD LOW RISK: <150 ----- BODER LINE: 150-1 99 ----- HIGH RISK: >200 ----- Not Available [facility] (Lab) [address] [place], [address], 10/21/2021 12:59:09 10/22/19 22 10/21/2021 LIPID PANEL HDL cholesterol 65 mg/dL 40- Not Available [facility] (Lab) [address] [place], [address], 10/21/2021 12:59:09 10/22/19 22 10/21/2021 LIPID PANEL LDL cholesterol, calculated 108 mg/dL 0-130 NIH PARAMJIT NSUS REPOR T RECOM MENDA TIONS FOR LDL: ADULT CHILD LOW RISK <130 <110 (OPTI MAL LDL) <100 ----- BORDE RLINE : 130-1 59 ----- HIGH RISK: >160 >130 A TRIGL YCERI DE RESUL T >400 INVAL IDATE S THE CALCU LATIO N FOR LDL FRACT IONAT ION - THE LDL RESUL T WILL NOT BE REPOR KALEB. Not Available [facility] (Lab) [address] [place], [address], 10/21/2021 12:59:09 10/22/19 22 10/21/2021 COMPR EHENS MEGHAN METAB OLIC PANEL creatinine 1.35 mg/dL 0.66-1 .25 high Not Available [facility] (Lab) [address] [place], [address], 10/21/2021 12:59:06 10/22/19 22 10/21/2021 COMPR EHENS MEGHAN METAB OLIC PANEL sodium 140 mmol/ L 137-14 5 Not Available [facility] (Lab) [address] [place], [address], 10/21/2021 12:59:06 10/22/19 22 10/21/2021 COMPR EHENS MEGHAN METAB OLIC PANEL potassium 4.9 mmol/ L 3.5-5. 1 Not Available [facility] (Lab) [address] [place], [address], 10/21/2021 12:59:06 10/22/19 22 10/21/2021 COMPR EHENS MEGHAN METAB OLIC PANEL chloride 108 mmol/ L 98-107 high Not Available [facility] (Lab) [address] [facility] [place], [address], 10/21/2021 12:59:06 10/22/19 22 10/21/2021 COMPR EHENS MEGHAN METAB OLIC PANEL carbon dioxide 25 mmol/ L 22-30 Not Available [facility] (Lab) [address] [place], [address], 10/21/2021 12:59:06 10/22/19 22 10/21/2021 COMPR EHENS MEGHAN METAB OLIC PANEL anion gap 11.9 mmol/ L 14-22 low Not Available [facility] (Lab) [address] [place], [address], 10/21/2021 12:59:06 10/22/19 22 10/21/2021 COMPR EHENS MEGHAN METAB OLIC PANEL glucose 102 mg/dL 70-99 high Not Available [facility] (Lab) [address] [place], [address], 10/21/2021 12:59:06 10/22/19 22 10/21/2021 COMPR EHENS MEGHAN METAB OLIC PANEL BUN 19 mg/dL 8-19 Not Available [facility] (Lab) [address] [place], [address], 10/21/2021 12:59:06 10/22/19 22 10/21/2021 COMPR EHENS MEGHAN METAB OLIC PANEL GFR 53 Refer ence Range : [place] GFR Healt hy Adult : >60 mL/mi n/1.7 3 m2 Chron ic Kidne y Disea se: 15-60 mL/mi n/1.7 3 m2 Kidne y Failu re: <15/m L/min /1.73 m2 www.n iddk. nih.g ov The MDRD study equat ion has not been valid ated in child jorge <18 years of age; pregn ant women ; the elder ly >85 years of age; or in some racia l or ethni c subgr oups, such as Hispa nics. Outsi de the valid ated xavier eters , estim ated GFR is less accur ate, requi ring clini declan judgm ent on a case- by-ca se basis . Clini declan inter preta tion for other races and ages must be made by the clini olvin. The MDRD study equat ion has not been valid ated for the evalu ation of serum creat inine relat ed to nutri elvira l statu s or medic ation usage . For perso ns <18 years of age, a pedia tric GFR calcu lator is avail able on the [facility] websi te: https ://joseph tripp.alfredo conroy/stacie jenningsal s/kdo qi/gf r_cal culat or Not Available [facility] (Lab) [address] [place], [address], 10/21/2021 12:59:06 10/22/19 22 10/21/2021 COMPR EHENS MEGHAN METAB OLIC PANEL alkaline phosphatase 61 U/L 38-126 Not Available [facility] (Lab) [address] [place], [address], 10/21/2021 12:59:06 10/22/19 22 10/21/2021 COMPR EHENS MEGHAN METAB OLIC PANEL alanine aminotransfe rase 24 U/L 0-50 Not Available [facility] (Lab) [address] [place], [address], 10/21/2021 12:59:06 10/22/19 22 10/21/2021 COMPR EHENS MEGHAN METAB OLIC PANEL aspartate aminotransfe rase 24 U/L 15-46 Not Available [facility] (Lab) [address] [place], [address], 10/21/2021 12:59:06 10/22/19 22 10/21/2021 COMPR EHENS MEGHAN METAB OLIC PANEL bilirubin, total 0.50 mg/dL 0.20-1 .30 Not Available [facility] (Lab) [address] [place], [address], 10/21/2021 12:59:06 10/22/19 22 10/21/2021 COMPR EHENS MEGHAN METAB OLIC PANEL calcium 9.2 mg/dL 8.4-10 .2 Not Available [facility] (Lab) [address] [place], [address], 10/21/2021 12:59:06 10/22/19 22 10/21/2021 COMPR EHENS MEGHAN METAB OLIC PANEL total protein 7.0 g/dL 6.3-8. 2 Not Available [facility] (Lab) [address] [place], [address], 10/21/2021 12:59:06 10/22/19 22 10/21/2021 COMPR EHENS MEGHAN METAB OLIC PANEL albumin 4.2 g/dL 3.0-4. 4 Not Available [facility] (Lab) [address] [place], [address], 10/21/2021 12:59:06 10/22/19 22 10/21/2021 COMPR EHENS MEGHAN METAB OLIC PANEL globulin 2.8 g/dL 2.6-4. 2 Not Available [facility] (Lab) [address] [place], [address], 10/21/2021 12:59:06 10/22/19 22 10/21/2021 COMPR EHENS MEGHAN METAB OLIC PANEL A/G ratio 1.5 ratio 1.0-2. 0 Not Available [facility] (Lab) [address] [place], [address], 10/21/2021 12:59:06 01/07/20 22 01/06/2022 BASIC METAB OLIC PANEL carbon dioxide 27 mmol/ L 22-30 Not Available [facility] (Lab) [address] [place], [address], 01/06/2022 12:45:14 01/07/20 22 01/06/2022 BASIC METAB OLIC PANEL sodium 137 mmol/ L 137-14 5 Not Available [facility] (Lab) [address] [place], [address], 01/06/2022 12:45:14 01/07/20 22 01/06/2022 BASIC METAB OLIC PANEL potassium 5.0 mmol/ L 3.5-5. 1 Not Available [facility] (Lab) [address] [place], [address], 01/06/2022 12:45:14 01/07/20 22 01/06/2022 BASIC METAB OLIC PANEL chloride 101 mmol/ L 98-107 Not Available [facility] (Lab) [address] [place], [address], 01/06/2022 12:45:14 01/07/20 22 01/06/2022 BASIC METAB OLIC PANEL anion gap 14.0 mmol/ L 14-22 Not Available [facility] (Lab) [address] [place], [address], 01/06/2022 12:45:14 01/07/20 22 01/06/2022 BASIC METAB OLIC PANEL glucose 105 mg/dL 70-99 high Not Available [facility] (Lab) [address] [place], [address], 01/06/2022 12:45:14 01/07/20 22 01/06/2022 BASIC METAB OLIC PANEL BUN 23 mg/dL 8-19 high Not Available [facility] (Lab) [address] [place], [address], 01/06/2022 12:45:14 01/07/20 22 01/06/2022 BASIC METAB OLIC PANEL creatinine 1.34 mg/dL 0.66-1 .25 high Not Available [facility] (Lab) [address] [place], [address], 01/06/2022 12:45:14 01/07/20 22 01/06/2022 BASIC METAB OLIC PANEL GFR 53 Refer ence Range : [place] GFR Healt hy Adult : >60 mL/mi n/1.7 3 m2 Chron ic Kidne y Disea se: 15-60 mL/mi n/1.7 3 m2 Kidne y Failu re: <15/m L/min /1.73 m2 www.n iddk. nih.g ov The MDRD study equat ion has not been valid ated in child jorge <18 years of age; pregn ant women ; the elder ly >85 years of age; or in some racia l or ethni c subgr oups, such as [facility] nics. Outsi de the valid ated xavier eters , estim ated GFR is less accur ate, requi ring clini declan judgm ent on a case- by-ca se basis . Clini declan inter preta tion for other races and ages must be made by the clini olvin. The MDRD study equat ion has not been valid ated for the evalu ation of serum creat inine relat ed to nutri elvira l statu s or medic ation usage . For perso ns <18 years of age, a pedia tric GFR calcu lator is avail able on the F websi te: https ://joseph w.mary tripp.o rg/pr ofess ional s/kdo qi/gf r_cal culat or Not Available [facility] (Lab) [address] [place], [address], 01/06/2022 12:45:14 01/07/20 22 01/06/2022 BASIC METAB OLIC PANEL calcium 9.5 mg/dL 8.4-10 .2 Not Available [facility] (Lab) [address] [place], [address], 01/06/2022 12:45:14 09/23/19 23 09/22/2022 CBC/C OMPLE TE BLD COUNT W/DIF F white blood cells 5.9 x10'3 /uL 4.2-10 .8 Not Available [facility] (Lab) [address] [place], [address], 09/22/2022 12:41:32 09/23/19 23 09/22/2022 CBC/C OMPLE TE BLD COUNT W/DIF F red blood cells 4.49 x10'6 /uL 4.10-5 .80 Not Available [facility] (Lab) [address] [place], [address], 09/22/2022 12:41:32 09/23/19 23 09/22/2022 CBC/C OMPLE TE BLD COUNT W/DIF F hemoglobin 13.7 g/dL 13.2-1 7.0 Not Available [facility] (Lab) [address] [place], [address], 09/22/2022 12:41:32 09/23/19 23 09/22/2022 CBC/C OMPLE TE BLD COUNT W/DIF F hematocrit 41.7 % 39.3-5 0.0 Not Available [facility] (Lab) [address] [place], [address], 09/22/2022 12:41:32 09/23/19 23 09/22/2022 CBC/C OMPLE TE BLD COUNT W/DIF F mean red cell volume 92.9 fL 80.0-9 7.0 Not Available [facility] (Lab) [address] [place], [address], 09/22/2022 12:41:32 09/23/19 23 09/22/2022 CBC/C OMPLE TE BLD COUNT W/DIF F mean red cell hemoglobin 30.5 pg 27.0-3 3.0 Not Available [facility] (Lab) [address] [place], [address], 09/22/2022 12:41:32 09/23/19 23 09/22/2022 CBC/C OMPLE TE BLD COUNT W/DIF F mean RBC HGB concentratio n 32.9 g/dL 31.0-3 6.0 Not Available [facility] (Lab) [address] [place], [address], 09/22/2022 12:41:32 09/23/19 23 09/22/2022 CBC/C OMPLE TE BLD COUNT W/DIF F red cell distribution width 12.7 % 11.8-1 5.5 Not Available [facility] (Lab) [address] [place], [address], 09/22/2022 12:41:32 09/23/19 23 09/22/2022 CBC/C OMPLE TE BLD COUNT W/DIF F platelets 275 x10'3 /uL 150-40 0 Not Available [facility] (Lab) [address] [place], [address], 09/22/2022 12:41:32 09/23/19 23 09/22/2022 CBC/C OMPLE TE BLD COUNT W/DIF F mean platelet volume 10.1 fL 9.0-12 .4 Not Available [facility] (Lab) [address] [place], [address], 09/22/2022 12:41:32 09/23/19 23 09/22/2022 CBC/C OMPLE TE BLD COUNT W/DIF F neutrophils 58.9 % 39.0-7 2.0 Not Available [facility] (Lab) [address] [place], [address], 09/22/2022 12:41:32 09/23/1909/22/2022 CBC/C OMPLE TE BLD COUNT W/DIF F lymphocytes 25.7 % 16.0-4 7.0 Not Available [facility] (Lab) [address] [place], [address], 09/22/2022 12:41:32 09/23/19 23 09/22/2022 CBC/C OMPLE TE BLD COUNT W/DIF F monocytes 9.0 % 5.0-12 .0 Not Available [facility] (Lab) [address] [place], [address], 09/22/2022 12:41:32 09/23/1909/22/2022 CBC/C OMPLE TE BLD COUNT W/DIF F eosinophils 5.2 % 1.0-7. 0 Not Available [facility] (Lab) [address] [place], [address], 09/22/2022 12:41:32 09/23/1909/22/2022 CBC/C OMPLE TE BLD COUNT W/DIF F basophils 0.5 % 0.0-2. 0 Not Available [facility] (Lab) [address] [place], [address], 09/22/2022 12:41:32 09/23/19 23 09/22/2022 CBC/C OMPLE TE BLD COUNT W/DIF F immature granulocytes 0.7 % 0.00-0 .50 high Not Available [facility] (Lab) [address] [place], [address], 09/22/2022 12:41:32 09/23/19 23 09/22/2022 CBC/C OMPLE TE BLD COUNT W/DIF F neutrophils, absolute count 3.49 x10'3 /uL 1.5-8. 0 Not Available [facility] (Lab) [address] [place], [address], 09/22/2022 12:41:32 09/23/19 23 09/22/2022 CBC/C OMPLE TE BLD COUNT W/DIF F lymphocytes, absolute count 1.52 x10'3 /uL 1.07-3 .43 Not Available [facility] (Lab) [address] [place], [address], 09/22/2022 12:41:32 09/23/19 23 09/22/2022 CBC/C OMPLE TE BLD COUNT W/DIF F monocytes, absolute count 0.53 x10'3 /uL 0.29-0 .99 Not Available [facility] (Lab) [address] [place], [address], 09/22/2022 12:41:32 09/23/19 23 09/22/2022 CBC/C OMPLE TE BLD COUNT W/DIF F eosinophils, absolute count 0.31 x10'3 /uL 0.02-0 .53 Not Available [facility] (Lab) [address] [place], [address], 09/22/2022 12:41:32 09/23/19 23 09/22/2022 CBC/C OMPLE TE BLD COUNT W/DIF F basophils, absolute count 0.03 x10'3 /uL 0.01-0 .08 Not Available [facility] (Lab) [address] [place], [address], 09/22/2022 12:41:32 09/23/19 23 09/22/2022 CBC/C OMPLE TE BLD COUNT W/DIF F immature granulocytes ,absolute 0.04 x10'3 /uL 0.00-0 .05 Not Available [facility] (Lab) [address] [place], [address], 09/22/2022 12:41:32 09/23/19 23 09/22/2022 CBC/C OMPLE TE BLD COUNT W/DIF F nucleated red blood cells 0.0 % -0 Not Available [facility] (Lab) [address] [place], [address], 09/22/2022 12:41:32 09/23/19 23 09/22/2022 CBC/C OMPLE TE BLD COUNT W/DIF F NRBC# 0.00 x10'3 /uL Not Available [facility] (Lab) [address] [facility] [place], [address], 09/22/2022 12:41:32 06/08/19 23 06/08/2022 elect rocar diogr am No observ ation record ed. [id number] [id number] [address] [facility] [address], [place], [address], 07/06/2022 03:34:01 06/08/19 elect rocar diogr am No observ ation record ed. [id number] [facility] [address] [facility], [place], [address], 07/06/2022 03:34:01 09/15/19 23 06/14/2022 NM, myoca rdial perfu ruiz scan No observ ation record ed. cyl [facility] Fax Line [address] [facility] [address], [place], [address], 09/14/2022 15:28:27 Result Notes None recorded. Problems Name Problem SNOMED Code Status Onset Date Resolution Date Notes Provider Name and Address Organization Details Recorded Time Backache 310368234 Active Not Available [facility] 3 10:48:30 Low back pain 646880854 Active Not Available [facility] 3 10:48:30 Chest pain 10307570 Active Not Available [facility] 3 10:48:30 Knee pain Active Not Available [facility] 3 10:48:30 Dehydration 78422508 Active 2021 Not Available [facility] 3 10:48:30 Dyslipidemia 942637566 Active 2019 Not Available [facility] 3 10:48:30 Anxiety 19900902 Active 2018 Not Available [facility] 3 10:48:30 Essential hypertension 25820677 Active Not Available [facility] 3 10:48:30 Problem Notes None recorded. Procedures Surgical History Date Name Laterality Status Provider Name and Address Organization Details Recorded Time 1 Shoulder completed Not Available [facility] 3 03:15:41 Knee Surgery completed Not Available [facility] 07/06/2022 03:15:41 Imaging Results None recorded. Procedure Notes None recorded. Medical Equipment None Reported. Allergies No known drug allergies Medications Name Sig Start Date Stop Date Status Note LastModified by Organization Details LastModified Time Singulair 10 mg tablet Take 1 tablet every day by oral route. active Not Available Not Available No t Available amoxicill in 500 mg capsule Take 1 capsule every 8 hours by oral route for 10 days. 09/27 completed Not Available Not Available Not Available carvedilo l 6.25 mg tablet TAKE 1.5 TABLET BY MOUTH TWICE DAILY active Not Available Not Available No t Available prednison e 10 mg tablet Take 3 x 2 days, 2 x 2 days, 1 x 2 days active Not Available Not Available No t Available atorvasta tin 20 mg tablet TAKE 1 TABLET BY MOUTH EVERY DAY active Not Available Not Available No t Available nitroglyc trevor 0.1 mg/hr transderm al 24 hour patch active Not Available Not Available Not Available atorvasta tin 10 mg tablet TAKE ONE TABLET DAILY 07/09 completed increase d to 20mg on 07/10/18 Not Available Not Available Not Available alprazola m 1 mg tablet TAKE 1 TABLET BY MOUTH TWICE DAILY NEEDED active Not Available Not Available No t Available tizanidin e 4 mg tablet Take 1 tablet every day by oral route at bedtime. 12/09 completed Not Available Not Available Not Available hydrocodo ne 5 mg-acetam inophen 325 mg tablet TAKE 1 TO 2 TABLETS BY MOUTH EVERY 4 TO 6 HOURS NEEDED FOR PAIN. MAX 8 TABS/24H RS. 01/25 completed Not Available Not Available Not Available Medrol (Etienne) 4 mg tablets in a dose pack Take by oral route. 01/25 completed Not Available Not Available Not Available prednison e 20 mg tablet Take 2 tablets every day by oral route for 5 days. 11/13 completed Not Available Not Available Not Available Zithromax Z-Etienne 250 mg tablet TAKE DIRECTED 06/25 completed Not Available Not Available Not Available promethaz ine 6.25 mg-codein e 10 mg/5 mL syrup TK 5 ML PO Q 6 H PRN 06/11 completed Not Available Not Available Not Available aspirin 81 mg tablet,de layed release Take 1 tablet every day by oral route. 06/25 completed Not Available Not Available Not Available tramadol 50 mg tablet TAKE 1 TABLET BY MOUTH EVERY 8 HOURS NEEDED 09/30 completed Not Available Not Available Not Available sildenafi l 100 mg tablet TAKE 1 TABLET BY MOUTH 30 MINUTES BEFORE SEXUAL ACTIVITY . NO MORE THAN 1 TABLET / 24 HOURS active Not Available Not Available No t Available alprazola m 0.5 mg tablet TAKE ONE TABLET TWICE DAILY 12/16 completed Not Available Not Available Not Available diltiazem 120 mg tablet TAKE ONE TABLET DAILY 06/25 completed Not Available Not Available Not Available amlodipin e 10 mg tablet TAKE 1 TABLET BY MOUTH EVERY DAY active Not Available Not Available No t Available benzonata te 100 mg capsule TK 1 C PO TID PRF COUGH 09/27 completed Not Available Not Available Not Available nitroglyc trevor 0.4 mg sublingua l tablet PLACE ONE TABLET UNDER TONGUE NEEDED FOR CHEST PAIN active Not Available Not Available No t Available etodolac 400 mg tablet Take 1 tablet twice a day by oral route for 30 days. 12/02 completed Not Available Not Available Not Available hydrocodo ne 5 mg-acetam inophen 500 mg tablet TAKE 1 TABLET EVERY 6 HOURS NEEDED FOR PAIN active Not Available Not Available No t Available lisinopri l 10 mg-hydroc hlorothia zide 12.5 mg tablet TAKE 1 TABLET BY MOUTH EVERY DAY active Not Available Not Available No t Available cefdinir 300 mg capsule Take 1 capsule twice a day by oral route for 10 days. 06/16 completed Not Available Not Available Not Available fluticaso ne propionat e 50 mcg/actua tion nasal spray,pablo penjoieon SHAKE LQ AND U 1 SPR IEN BID 04/22 completed Not Available Not Available Not Available naproxen 500 mg tablet TAKE 1 TABLET BY MOUTH TWICE A DAY WITH FOOD 02/22 completed Not Available Not Available Not Available amoxicill in 875 mg-potass ium clavulana te 125 mg tablet TAKE 1 TABLET EVERY 12 HOURS FOR 10 DAYS. 06/11 completed Not Available Not Available Not Available Ventolin HFA 90 mcg/actua tion aerosol inhaler Inhale 2 puffs every 4 hours by inhalati on route. 06/25 completed Not Available Not Available Not Available Nitrostat NEEDED FOR CHEST PAIN 02/22 completed pt didn't need Not Available Not Available Not Available Harleen Allergy 180 mg tablet Take 1 tablet every day by oral route. 12/02 completed Not Available Not Available Not Available Fluarix Quad [id number] (PF) 60 mcg (15 mcg x 4)/0.5 mL IM syringe TO BE ADMINIST ERED BY [employer] FOR IMMUNIZA TION 05/30 completed Not Available Not Available Not Available Fluarix Quad [id number] (PF) 60 mcg (15 mcg x 4)/0.5 mL IM syringe TO BE ADMINIST ERED BY [employer] FOR IMMUNIZA TION 04/10 completed Not Available Not Available Not Available Flucelvax Quad (PF) 60 mcg (15 mcg x 4)/0.5 mL IM syringe TO BE ADMINIST ERED BY [employer] FOR IMMUNIZA TION 06/25 completed Not Available Not Available Not Available Vitals Date Recorded Body mass index (BMI) Body height Heart rate Body temperature Body weight Systolic And Diastolic Provider Name and Address Organization Details Last Updated DateTime 3 29.8 kg/m2 193.04 cm 81 /min 97.4 [degF] 817983. 13 g 120/70 mm[Hg] Not Available [facility] 3 03:17:31 Date Recorded Body height Body mass index (BMI) Body weight Body temperature Heart rate Systolic And Diastolic Provider Name and Address Organization Details Last Updated DateTime 3 193.04 cm 30.1 kg/m2 609137. 32 g 98.2 [degF] 67 /min 126/80 mm[Hg] Nesha johns RN [facility] Heidi Shaulis [facility] 3 10:18:45 Date Recorded Body mass index (BMI) Body height Heart rate Body temperature Body weight Systolic And Diastolic Provider Name and Address Organization Details Last Updated DateTime 2 29.9 kg/m2 193.04 cm 76 /min 97.1 [degF] 656568. 72 g 136/80 mm[Hg] Not Available [facility] 3 03:17:31 Date Recorded Body height Body mass index (BMI) Body weight Body temperature Heart rate Systolic And Diastolic Provider Name and Address Organization Details Last Updated DateTime 3 193.04 cm 29.7 kg/m2 381178. 54 g 99 [degF] 72 /min 120/74 mm[Hg] RIGO Vazquez [facility] Heidi Shaulis [facility] 3 10:01:09 Date Recorded Body mass index (BMI) Body height Heart rate Body temperature Body weight Systolic And Diastolic Provider Name and Address Organization Details Last Updated DateTime 2 29.6 kg/m2 193.04 cm 60 /min 97.7 [degF] 435053. 95 g 128/80 mm[Hg] Not Available [facility] 3 03:17:31 Social History Question Answer Notes LastModified by Organizat ion Details LastModified Time Tobacco Smoking Status Never Smoker MARSHALL Kate, [facility] Heidi Shaulis [facility] 03/08/2023 09:51:50 Do You Have An Advance Directive? Yes MIGRATION. Information not available 07/06/2022 How Many Years Have You Consumed Alcohol? 40 [email or web address] Information not available 03/08/2023 Are You Blind Or Do You Have Difficulty Seeing? No [email or web address] Information not available 03/08/2023 What Is Your Level Of Caffeine Consumption? Occasional MIGRATION. Information not available 07/06/2022 In The 14 Days Before Symptom Onset, Have You Had Close Contact With A Laboratory-shannai amished COVID-19 While That Case Was Ill? No Information not available 03/08/2023 In The 14 Days Before Symptom Onset, Have You Had Close Contact With A Person Who Is Under Investigation For COVID-19 While That Person Was Ill? No [email or web address] Information not available 03/08/2023 Are You Deaf Or Do You Have Serious Difficulty Hearing? No [email or web address] Information not available 03/08/2023 What Type Of Diet Are You Following? REGULAR [id number] Information not available 07/06/2022 Which Illicit Or Recreational Drugs Have You Used? None Information not available 03/08/2023 What Is The Highest Grade Or Level Of School You Have Completed Or The Highest Degree You Have Received? [id number] [email or web address] Information not available 03/08/2023 How Many Days Of Moderate To Strenuous Exercise, Like A Brisk Walk, Did You Do In The Last 7 Days? 3 [email or web address] Information not available 03/08/2023 On Those Days That You Engage In Moderate To Strenuous Exercise, How Many Minutes, On Average, Do You Exercise? 30 [email or web address] Information not available 03/08/2023 Have There Been Any Changes To Your Family Or Social Situation? No Information not available 03/08/2023 What Is The Fluoride Status Of Your Home? Fluoridated [email or web address] Information not available 03/08/2023 Are There Any Guns Present In Your Home? No [email or web address] Information not available 03/08/2023 Do You Use Insect Repellent Routinely? No [email or web address] Information not available 03/08/2023 Where Do You Live? SingleLevelHouse [email or web address] Information not available 03/08/2023 Do You Have A Medical Power Of Deboner? Yes Information not available 03/08/2023 What Was The Date Of Your Most Recent Tobacco Screening? 03/08/2023 [email or web address] Information not available 03/08/2023 Have You Ever Been Counseled For Unhealthy Alcohol Use? No [email or web address] Information not available 03/08/2023 Do You Have Any Pets? Yes [email or web address] Information not available 03/08/2023 What Is Your Relationship Status? [id number] Information not available 07/06/2022 Do You Use Your Seat Belt Or Car Seat Routinely? Yes [email or web address] Information not available 03/08/2023 Do You Have Smoke And Carbon Monoxide Detectors In Your Home? Yes [email or web address] Information not available 03/08/2023 Are You Passively Exposed To Smoke? No [email or web address] Information not available 03/08/2023 Are There Any Smokers In Your House? No Information not available 03/08/2023 How Much Tobacco Do You Smoke? No MIGRATION.[id number] Information not available 07/06/2022 What Types Of Sporting Activities Do You Participate In? Golf [email or web address] Information not available 03/08/2023 Do You Use Sunscreen Routinely? Yes [email or web address] Information not available 03/08/2023 Has Tobacco Cessation Counseling Been Provided? No Not Needed-ne cee Smoked [email or web address] Information not available 03/08/2023 How Many Years Have You Smoked Tobacco? 0 [email or web address] Information not available 03/08/2023 Have You Recently Traveled Abroad? No [email or web address] Information not available 03/08/2023 Do You Have Difficulty Walking Or Climbing Stairs? No [email or web address] Information not available 03/08/2023 Do You Have Any Dietary Restrictions? No [email or web address] Information not available 03/08/2023 How Many Years Have You Used Smokeless Tobacco? 15 MIGRATION.[id number] Information not available 07/06/2022 Sex: Male Functional Status Question Answer Note LastModified by Organizat ion Details LastModified Time Do you or have you ever used smokeless tobacco? Former smokeless tobacco user MIGRATION.[id number] Information not available 07/06/2022 Are you currently employed? Yes Information not available 03/08/2023 Do you have transportation difficulties? No [email or web address] Information not available 03/08/2023 Are you able to care for yourself? Yes [email or web address] Information n ot available 03/08/2023 Do you have difficulty dressing or bathing? No [email or web address] Information not available 03/08/2023 Do you or have you ever used e-cigarettes or vape? Never used electronic cigarettes [email or web address] Information not available 03/08/2023 What is your exercise level? Moderate MIGRATION.[id number] Information not available 07/06/2022 Do you use any illicit or recreational drugs? No [email or web address] Information not available 03/08/2023 Do you or have you ever used any other forms of tobacco or nicotine? No [email or web address] Information not available 03/08/2023 What is your level of alcohol consumption? Occasional MIGRATION.[id number] Information not available 07/06/2022 Are you able to walk? YESWOREST [email or web address] Information not available 03/08/2023 Do you have difficulty doing errands alone? 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 [email or web address] Information not available 03/08/2023 Mental Status Question Answer Note LastModified by Organizat ion Details LastModified Time Do you feel stressed (tense, restless, nervous, or anxious, or unable to sleep at night)? [id number] [email or web address] Information not available 03/08/2023 Do you have difficulty concentrating, remembering or making decisions? No [email or web address] Information no t available 03/08/2023 Family History Relationship Description Onset Age of this Age Resolved Age Notes LastModified by Organization Details LastModified Time Mother Renal failure syndrome [email or web address] Not available 05/2022 09:51:46 Father Heart disease [id number] Not available 07/06/2022 03:15:43 Brother Malignant neoplasm of bone [email or web address] Not available 05/2022 09:51:46 Unspecified Relation Malignant neoplasm of bone nephew [email or web address] Not available 05/2022 09:51:46 Medical History Condition Response NERVE DISEASE N BLINDNESS N RHEUMATIC FEVER N KIDNEY STONES N BLADDER PROBLEMS N OTHER # 1 N POLIO N LUNG DISEASE/DISORDER N RADIATION / CHEMOTHERAPY N COPD N Other # 2 N BLOOD DISEASES N SURGERY N EAR OR HEARING PROBLEMS N MUMPS N SHINGLES Y DEPRESSION (INCLUDING POST ) N BOWEL PROBLEMS N STROKE/TIA N ULCERS N BENIGN PROSTATIC HYPERPLASIA N MEASLES N HYPOTENSION N MYOCARDIAL INFARCTION N OBESITY N GERD/NAUSEA N ANEURYSM N URINARY/BLADDER/KIDNEY PROBLEMS N INPATIENT PSYCH CARE N CORONARY ARTERY DISEASE (CAD) N ADDICTION CONCERNS N Impotence Y ENDOMETRIOSIS N USE OF BLOOD THINNERS N SKIN PROBLEMS N GASTROINTESTINAL DISORDER N PERIPHERAL VASCULAR DISEASE N MUSCLE,JOINT OR BONE PROBLEMS N GASTROINTESTINAL BLEEDING N BLOOD CLOTS N ASTHMA N CATARACTS N ERECTILE DYSFUNCTION N VARICOSITIES N GI PROBLEMS N Low Testosterone N INFERTILITY N AIDS/HIV N CHEMOTHERAPY / RADIATION N LIVER DISEASE N MALE HYPOGONADISM N HYPERTENSION Y Deficiency N TOURETTE'S N ANXIETY DISORDER Y BLOOD TRANSFUSION N ANEMIA/BLOOD DISORDER N CHRONIC EAR INFECTIONS N BRONCHITIS N TUBERCULOSIS N GLAUCOMA N FOOT PROBLEM N DIVERTICULITIS N SLEEP APNEA N CHICKENPOX N INFECTIOUS DISEASE N PROSTATE N HEART ARRHYTHMIA N INSOMNIA N HIGH CHOLESTEROL / HYPERLIPIDEMIA Y HYPERTHYROIDISM N EYE PROBLEMS N NEUROLOGICAL PROBLEMS N EDEMA N CHRONIC PAIN SYNDROME N HYPOTHYROIDISM N CONSTIPATION N CAROTID BLOCKAGE N BACK / NECK PROBLEMS Y HAVE YOU BEEN HOSPITALIZED OR SEEN IN [facility] IN THE PAST YEAR ? Y ATHEROSCLEROSIS N BREAST PROBLEMS N DIALYSIS N ECZEMA N OSTEOPOROSIS N ARTHRITIS N APPENDICITIS N DIABETES, TYPE N BAD TEETH N ENT N HEARTBURN / REFLUX N AUTISM SPECTRUM DISORDER (ASD) N HEPATITIS / LIVER DISEASE N PULMONARY DISEASE N GOUT N SLEEP DISORDER N ALZHEIMER'S DISEASE N Brain Problems N HERPES N DEMENTIA N SEIZURES/EPILEPSY N HEADACHES/MIGRAINES N VASCULAR DISEASE N PACEMAKER N Blood Disorder N DIZZINESS N KIDNEY DISEASE N HEART DISEASE/HEART PROBLEMS N MULTIPLE SCLEROSIS N CARDIAC ARRHYTHMIA N CANCER: SPECIFY N ANESTHESIA COMPLICATIONS N Gall Stones N ATRIAL FIBRILLATION N PULMONARY EMBOLISM N AUTOIMMUNE DISEASE N Immunizations Vaccine Type Date Status Note Provider Nam e and Address Organization Details Recorded Time Influenza, split virus, quadrivalent, PF 6 completed Not Available [facility] 10/13/2022 10:48:31 COVID-19, mRNA, LNP-S, PF, 100 mcg/0.5mL dose or 50 mcg/0.25mL dose 1 completed Not Available [facility] 10/13/2022 10:48:31 COVID-19, mRNA, LNP-S, PF, 100 mcg/0.5mL dose or 50 mcg/0.25mL dose 1 completed Not Available [facility] 10/13/2022 10:48:31 influenza, unspecified formulation 8 completed Not Available [facility] 10/13/2022 10:48:31 Influenza, split virus, quadrivalent, preservative 7 completed Not Available [facility] 10/13/2022 10:48:31 COVID-19, mRNA, LNP-S, PF, 30 mcg/0.3 mL dose 1 completed Not Available [facility] 10/13/2022 10:48:31 Influenza, high-dose, quadrivalent, PF 2 completed Not Available [facility] 10/13/2022 10:48:31 Pneumococcal conjugate PCV 13 2 completed Not Available [facility] 10/13/2022 10:48:31 Influenza, split virus, quadrivalent, PF 1 completed Not Available [facility] 10/13/2022 10:48:31 Past Encounters Encounter ID Performer Location Encounter Start Date Encounter Closed Date Diagnosis/Indication Diagnosis SNOMED-CT Code Diagnosis ICD10 Code Diagnosis Note [id number] Jenaro Kunz MD [facility] Internal Med [facility] [address] [place] [address] 09/29/2020 00:00:00 09/29/2020 21:53:45 [id number] Jenaro Kunz MD [facility] Internal Med [facility] [address] [facility] [address] [address] 01/25/2021 00:00:00 02/07/2021 12:38:06 [id number] Jenaro Kunz MD [facility] Internal Med [facility] [place] [address] [address] 02/22/2021 00:00:00 02/22/2021 23:03:16 [id number] Jenaro Kunz MD [facility] Internal Med [facility] [place] [address] [facility] [address] [address] 03/25/2021 00:00:00 03/25/2021 22:54:04 [id number] Jenaro Kunz MD [facility] Internal Med [facility] [place] [address] [address] 09/30/2021 00:00:00 10/03/2021 11:23:46 [id number] Jenaro Kunz MD [facility] Internal Med [facility] [place] [address] [place] [address] , [address] [address] 03/24/2022 00:00:00 04/02/2022 23:29:46 [id number] Jenaro Kunz MD [facility] Internal Med [facility] [address] [facility] [address] [place] [address] 06/08/2022 00:00:00 06/08/2022 23:20:05 [id number] Jenaro Kunz MD [facility] Internal Med [facility] [address] [facility] [address] [place] [address] 09/14/2022 10:02:30 09/14/2022 11:19:09 Renewal of prescription 294398632 Z76.0 Essential hypertension 98738178 I10 Dyslipidemia 516868882 E 78.5 Anxiety 37141707 F41.9 [id number] Jenaro Kunz MD [facility] Internal Med [facility] [address] [facility] [address] [place] [address] 03/08/2023 09:50:07 03/08/2023 11:00:00 Dyslipidemia 317875635 E78.5 Essential hypertension 04889424 I10 Screening for malignant neoplasm of prostate 413088962 Z12.5 Anxiety 25031178 F41.9 Health Concerns Section Related Observation LastModified by Organization Detai ls LastModified Time None Recorded Concern Status LastModified by Organization Details LastModified Time None Recorded Advance Directives Directive Y: Payers Encounter Date Sequence Insurance Name Policy Number Policy Covarrubias Covered Member ID Covarrubias Member ID Guarantor Name 09/14/2022 1 [employer] [id number] Reno Cydney Ye [id number] Ren[place] Belcher 03/08/2023 1 [employer] [id number] Reno Cydney Ye [id number] Reno Cydney Ye Notes Date Note Type Note Provider Name and Address Organization Details Recorded Time 3 text/html hypertension no headache no dizzinesserectile dysfunction Viagra is workinganxiety stableChest pain resolvedDyslipidemia trying to follow a low-fat dietJust had a wonderful trip to [place] Jenaro Kunz MD [address] [facility], [place], [address], [place] [facility] 09/14/2022 22:46:55 3 text/html hypertension no headache no dizzinesserectile dysfunction Viagra is workinganxiety stableChest pain resolvedDyslipidemia trying to follow a low-fat diet Jenaro Kunz MD [address] [place] [address], [facility] [address], [place], [address], [place] [facility] 03/11/2023 11:26:57
== END 2024-10-01 12:52 | disposition home or self-care (01) ==
PROVIDERS: PCP Internal Medicine; Visit Provider Internal Medicine
DX: R05.3 Chronic cough (principal)
CPT/HCPCS: 71046; 87070; 87205